=== PATIENT | male | born 1960 | race Hispanic/Latino ===

== ENCOUNTER 2023-10-05 13:33 | Emergency (ER) | payer OTHER ==
--- NOTE | 2023-10-05 14:04 | RAD REPORT ---
EXAM DESCRIPTION: CT - Ct Stroke Brain Wo Cont - 10/05/2023 1:54 pm CLINICAL HISTORY: Right facial droop COMPARISON: none TECHNIQUE: Computed axial tomography of the head was obtained. All CT scans are performed using dose optimization technique as appropriate and may include automated exposure control or mA/KV adjustment according to patient size. FINDINGS: Images are degraded by patient motion artifact 1 centimeter low-density area right periventricular white matter probably old An intracranial bleed is not seen . The ventricles are normal in caliber. No extra-axial fluid collection is noted. Mild low-density within periventricular, deep and subcortical white matter likely ischemic changes se condary to small vessel disease Fluid within the sinuses/ mastoids is not seen. IMPRESSION: No acute intracranial abnormality is seen. If patient's symptoms persist MRI of the bra in would be recommended Doctor Gama of the emergency room was notified 1:58 p.m. October 05, 2023
[2023-10-05 14:07] LABS: Absolute Basophils 0.1 K/uL (0-0.5); Absolute Eosinophils 0.3 K/uL (0-0.5); Absolute Lymphocytes (CBC) 1.6 K/uL (0.7-4.9); Absolute Monocytes 0.7 K/uL (0.1-1.3); Absolute Neutrophil 4.3 K/uL (1.8-8.0); Basophils % 1.5 % (0-1.3); Hematocrit 33.5 % (39.6-49.0); Hemoglobin 11.5 g/dL (13.6-17.9); Lymphocytes % 23.1 % (15.3-44.8); MCH 29.5 pg (27.0-35.0); MCHC 34.4 g/dL (32.0-36.0); MCV 85.8 fL (80-100); MPV 7.3 fL (7.6-11.3); Monocytes % 9.4 % (3.3-12.3); Platelets 189 thou/uL (152-406); RBC Red Blood Cell Count 3.91 M/uL (4.33-5.43); Red Cell Distribution Width 14.5 % (12.1-15.2)
[2023-10-05 14:13] LABS: PT Prothrombin Time 12.2 SECONDS (9.4-12.5); PTT, Activated Partial Thromb 41.4 SECONDS (24.3-36.9); Protime INR 1.11
[2023-10-05 14:25] LABS: Albumin/Globulin Ratio 0.9 (1.1-1.8); Alkaline Phosphatase 63 U/L (45-117); BUN Blood Urea Nitrogen 15 mg/dL (7-18); Bicarbonate 25 mEq/L (21-32); Bilirubin Direct 0.2 mg/dL (0-0.2); Bilirubin Indirect, Calculated 0.3 mg/dL (0.2-0.8); Bilirubin Total 0.5 mg/dL (0.2-1.0); Globulin 3.5 g/dL (2.3-3.5); Glomerular Filtration Rate 58 ml/min (=/>90); Glucose Level 169 mg/dL (74-106); Protein, Total 6.5 g/dL (6.4-8.2); Sodium Level 136 mEq/L (136-145); Troponin High Sensitivity 8.3 pg/mL (<58.9)
[2023-10-05 14:27] LABS: ALT/SGPT < 14 U/L (16-61); AST/SGOT < 10 U/L (15-37)
--- NOTE | 2023-10-05 14:35 | RAD REPORT ---
EXAM DESCRIPTION: CTHead angio10/05/2023 2:01 pm CLINICAL HISTORY: Facial droop COMPARISON: none TECHNIQUE: 100 cc Isovue [address] angiogram of the head was obtained. 3D MIPS reconstruction performed. All CT scans are performed using dose optimization technique as appropriate and may include automated exposure control or mA/KV adjustment according to patient size. FINDINGS: The basilar, anterior cerebral, middle cerebral and posterior cerebral arteries do not dem onstrate a significant stenosis Moderate calcified plaque distal right internal carotid artery Severe calcified plaque distal left internal carotid artery An aneurysm is not seen No large vessel occlusion IMPRESSION: Severe calcified plaque distal left internal carotid artery results in a high-grade sten osis Moderate calcified plaque distal right internal carotid artery
--- NOTE | 2023-10-05 14:36 | RAD REPORT ---
EXAM DESCRIPTION: Adilenekymberly Angio10/05/2023 2:01 pm CLINICAL HISTORY: Facial droop COMPARISON: None TECHNIQUE: 100 cc Isovue [address] angiogram of the neck was obtained. 3D MIPS reconstruction performed. All CT scans are performed using dose optimization technique as appropriate and may include automated exposure control or mA/KV adjustment according to patient size. FINDINGS: Visualized great vessels unremarkable Severe calcified plaque proximal left internal carotid artery. Severe calcified plaque proximal right internal carotid artery Severe calcified plaque distal left vertebral Moderate calcified plaque distal right vertebral artery Mild calcified common carotid and external carotid arteries No dissection is seen. [place] crieria Mild stenosis 0 to 49 % Moderate stenosis 50-69% Severe stenosis 70-99% IMPRESSION: Severe calcified plaque proximal left internal carotid, proximal right internal carotid and distal le ft vertebral arteries resulting in high-grade stenoses
[2023-10-05] MEDS ORDERED: ASPIRIN 81 MG CHEWABLE TABLET ONE (14:51)
[2023-10-05] MEDS ORDERED: FOLIC ACID 5 MG/ML VIAL ONE (14:51)
[2023-10-05] MEDS ORDERED: NA CHLORIDE 0.9% 1,000 ML ONE (14:53)
--- NOTE | 2023-10-05 14:54 | ER ---
Nurse's Notes [facility] Name: Bienvenido Matos Age: 63 yrs Sex: Male : 1960 Arrival Date: 10/05/2023 Time: 13:33 Bed 15 Private MD: Diagnosis: Cerebral infarction, unspecified;Carotid stenosis Presentation: 10/04 13:45 Chief complaint: Brother, "We noticed a right side facial droop this morning around mb9 9am. He went to bed last night at 11pm and isn't having any other symptoms.". Coronavirus screen: At this time, the client does not indicate any symptoms associated with coronavirus-19. Ebola Screen: No symptoms or risks identified at this time. Initial Sepsis Screen: Does the patient meet any 2 criteria? No. Patient's initial sepsis screen is negative. Does the patient have a suspected source of infection? No. Patient's initial sepsis screen is negative. Risk Assessment: Do you want to hurt yourself or someone else? Patient reports no desire to harm self or others. Onset of symptoms was October 05, 2023. 13:45 Acuity: WILLY 2 mb9 13:45 Method Of Arrival: Wheelchair mb9 Triage Assessment: 13:49 The onset of the patients symptoms was October 04, 2023 at 23:00. General: Appears in no mb9 apparent distress. Behavior is cooperative. Neuro: Maguire Agitation-Sedation Scale (RASS): 0 - Alert and Calm Level of Consciousness is awake, alert, obeys commands, Oriented to person, place, time, situation, Appropriate for age Scientist Engineer are equal bilaterally Moves all extremities. Gait is steady, Speech is normal, Facial droop on right, Pupils are PERRLA, Intact. 16:46 Pain: Denies pain. nj1 Historical: - Allergies: 13:44 No Known Allergies; mb9 - PMHx: 13:44 Hypertensive disorder; Diabetes mellitus; Schizophrenia; mb9 - PSHx: 13:44 None; mb9 - Immunization history:: Adult Immunizations up to date. - Infectious Disease History:: Denies. - Social history:: Smoking status: Patient denies any tobacco usage or history of. Screenin:12 VAN Screening: Arm Drift: Patient shows no arm weakness. Patient is VAN negative. es3 Visual Disturbance: No visual disturbance noted. Aphasia: No aphasia noted. Neglect: No neglect noted. [place] Swallow Protocol Exclusion Criteria: Exclusion Criteria Result: Proceed Brief Cognitive Screen What is your name? Normal, Where are you right now? Normal, What year is it? Normal. Oral Mechanism Examination Facial Symmetry: Normal, Motion: Normal, Lip Closure: Normal, Oral Mechanism Result: Normal. 3 oz Water Swallow Challenge: Pt able to drink all water without stopping, coughing, choking or throat clearing: Yes Result: PASS Notified: Blanca Duff PA-C. 14:33 [facility] ED Fall Risk Assessment (Adult) History of falling in the last 3 months, nj1 including since admission No falls in past 3 months (0 pts) Confusion or Disorientation No (0 pts) Intoxicated or Sedated No (0 pts) Impaired Gait No (0 pts) Mobility Assist Device Used No (0 pt) Altered Elimination No (0 pt) Score/Fall Risk Level 0 - 2 = Low Risk Oriented to surroundings, Maintained a safe environment, Hourly rounding (assess needs \\T\\ fall precautionary measures) done. Abuse screen: Denies threats or abuse. Denies injuries from another. Nutritional screening: No deficits noted. Tuberculosis screening: No symptoms or risk factors identified. Assessment: 12:45 General: Appears in no apparent distress. comfortable, Behavior is calm, cooperative, nj1 appropriate for age. 12:45 Pain: Denies pain. Neuro: Level of Consciousness is awake, alert, obeys commands, nj1 Oriented to person, place, time, situation, Scientist Engineer are equal bilaterally Moves all extremities. Gait is steady, Speech is slurred, Facial droop on right, Pupils are PERRLA, Intact. 12:50 TNKase (Tenecteplase) Screening: Contraindications: Patient reports onset of signs and nj1 symptoms of stroke greater than 6 hours ago:. 13:44 Reassessment: Code stroke called. mb9 13:48 Reassessment: pt taken to CT by charge nurse, Kindra. mb9 14:10 VAN Scoring: Arm Drift: Patients demonstrates NO arm weakness. Patient is VAN Negative. nj1 16:23 Reassessment: Patient appears in no apparent distress at this time. No changes from kj2 previously documented assessment. Patient and/or family updated on plan of care and expected duration. Pain level reassessed. Patient is alert, oriented x 3, equal unlabored respirations, skin warm/dry/pink. 16:50 Reassessment: Brother, Cesia Matos (PHILLIP), . nj1 17:25 Reassessment: Patient appears in no apparent distress at this time. Patient and/or nj1 family updated on plan of care and expected duration. Pain level reassessed. Patient is alert, oriented x 3, equal unlabored respirations, skin warm/dry/pink. 17:45 Reassessment: [facility] here to transport patient. Report given to Adilson EMTP. nj1 Vital Signs: 13:45 BP 167 / 97; Pulse 80; Resp 18; Temp 98; Pulse Ox 100% on R/A; Weight 77.11 kg; Height mb9 5 ft. 8 in. ; 14:29 BP 159 / 90; Pulse 71; Resp 18; Pulse Ox 100% ; nj1 16:19 BP 169 / 99; Pulse 72; Resp 20; Pulse Ox 100% on R/A; kj2 16:50 BP 192 / 109; Pulse 77; Resp 23; Pulse Ox 99% on R/A; nj1 17:25 BP 177 / 77; Pulse 86; Resp 22; Pulse Ox 100% ; nj1 13:45 Body Mass Index 25.85 (77.11 kg, 172.72 cm) mb9 NIH Stroke Scale Scores: 12:45 NIHSS Score: 3 nj1 13:44 NIHSS Score: 4 sb4 14:12 NIHSS Score: 3 es3 16:49 NIHSS Score: 3 nj1 ED Course: 12:45 Patient has correct armband on for positive identification. Bed in low position. Call nj light in reach. Adult w/ patient. 12:45 Provided Education on: call light, fall precautions. nj1 13:36 Patient arrived in ED. mg5 13:37 Blanca Duff PA-C is PHCP. sb4 13:37 Geoff Esteban DO is Attending Physician. sb4 13:44 Arm band placed on. mb9 13:48 Triage completed. mb9 13:51 Digna De La O, ELI is Primary Nurse. nj1 13:52 Inserted saline lock: 22 gauge in right antecubital area, using aseptic technique. nj1 Blood collected. Initiated by Darleen BENITEZ. 13:56 CT Stroke Brain w/o Contrast In Process Unspecified. EDMS 14:02 CT Head Angio In Process Unspecified. EDMS 14:02 CT Neck Angio In Process Unspecified. EDMS 14:19 Stroke CXR 1 View In Process Unspecified. EDMS 16:45 No provider procedures requiring assistance completed. Patient transferred, IV remains nj1 in place. 16:55 Notified Nurse Practitioner and/or Physician Climate Change Analyst of vital signs. nj1 Administered Medications: 15:01 Drug: NS 0.9% IV 1000 ml IV at 1 bolus Per protocol; 1000 mL bolus Route: IV; Rate: 1 nj1 bolus; Site: right antecubital; 15:01 Drug: Aspirin PO 162 mg PO once Route: PO; nj1 16:28 Follow up: Response: No adverse reaction nj1 15:01 Drug: foLIC Acid IVPB 1 mg IVPB once Route: IVPB; Site: right antecubital; nj1 16:28 Drug: Clopidogrel PO 75 mg PO once Route: PO; nj1 17:09 Follow up: Response: No adverse reaction nj1 17:08 Drug: hydrALAZINE IVP 10 mg IVP once Route: IVP; Site: right antecubital; nj1 17:25 Follow up: Response: No adverse reaction; Blood pressure is lowered nj1 Medication: 16:46 VIS not applicable for this client. nj1 Outcome: 14:54 ER care complete, transfer ordered by sb4 16:33 Transferred by ground EMS to [facility], Transfer form completed. nj1 Note: Report called to nurse Bouchra. 16:33 Condition: stable nj1 16:33 Instructed on the need for transfer, 17:52 Patient left the ED. nj1 NIH Stroke Scale - NIH Stroke Score Date: 10/05/2023 Time: 12:45 Total Score = 3 10. Dysarthria (speech clarity - read or repeat words) - 1(Mild to Moderate) 11. Extinction and Inattention (visual/tactile/auditory/spatial/personal) - 0(No abnormality) 1a. Level of Consciousness (LOC) - 0(Alert) 1b. Level of Consciousness (LOC) (Month \\T\\ Age) - 0(Both) 1c. LOC Commands (Open \\T\\ Closes Eyes/Enrolled Agent) - 0(Both) 2. Best Gaze (Lateral Gaze Paresis) - 0(Normal) 3. Visual Field Loss - 0(No visual loss) 4. Facial Palsy - 2(Partial paralysis) 5a. Left Arm: Motor (10-second hold) - 0(No drift) 5b. Right Arm: Motor (10-second hold) - 0(No drift) 6a. Left Leg: Motor (5-second hold - always test supine) - 0(No drift) 6b. Right Leg: Motor (5-second hold - always test supine) - 0(No drift) 7. Limb Ataxia (finger/nose \\T\\ heel/morales - test with eyes open) - 0(Absent) 8. Sensory Loss (pinprick arms/legs/face) - 0(Normal) 9. Best Language: Aphasia (description/naming/reading) - 0(No aphasia) Initials: nj1 NIH Stroke Scale - NIH Stroke Score Date: 10/05/2023 Time: 13:44 Total Score = 4 10. Dysarthria (speech clarity - read or repeat words) - 1(Mild to Moderate) 11. Extinction and Inattention (visual/tactile/auditory/spatial/personal) - 0(No abnormality) 1a. Level of Consciousness (LOC) - 0(Alert) 1b. Level of Consciousness (LOC) (Month \\T\\ Age) - 0(Both) 1c. LOC Commands (Open \\T\\ Closes Eyes/Enrolled Agent) - 0(Both) 2. Best Gaze (Lateral Gaze Paresis) - 0(Normal) 3. Visual Field Loss - 1(Partial hemianopia) 4. Facial Palsy - 2(Partial paralysis) 5a. Left Arm: Motor (10-second hold) - 0(No drift) 5b. Right Arm: Motor (10-second hold) - 0(No drift) 6a. Left Leg: Motor (5-second hold - always test supine) - 0(No drift) 6b. Right Leg: Motor (5-second hold - always test supine) - 0(No drift) 7. Limb Ataxia (finger/nose \\T\\ heel/morales - test with eyes open) - 0(Absent) 8. Sensory Loss (pinprick arms/legs/face) - 0(Normal) 9. Best Language: Aphasia (description/naming/reading) - 0(No aphasia) Initials: sb4 NIH Stroke Scale - NIH Stroke Score Date: 10/05/2023 Time: 14:12 Total Score = 3 10. Dysarthria (speech clarity - read or repeat words) - 1(Mild to Moderate) 11. Extinction and Inattention (visual/tactile/auditory/spatial/personal) - 0(No abnormality) 1a. Level of Consciousness (LOC) - 0(Alert) 1b. Level of Consciousness (LOC) (Month \\T\\ Age) - 0(Both) 1c. LOC Commands (Open \\T\\ Closes Eyes/Enrolled Agent) - 0(Both) 2. Best Gaze (Lateral Gaze Paresis) - 0(Normal) 3. Visual Field Loss - 0(No visual loss) 4. Facial Palsy - 2(Partial paralysis) 5a. Left Arm: Motor (10-second hold) - 0(No drift) 5b. Right Arm: Motor (10-second hold) - 0(No drift) 6a. Left Leg: Motor (5-second hold - always test supine) - 0(No drift) 6b. Right Leg: Motor (5-second hold - always test supine) - 0(No drift) 7. Limb Ataxia (finger/nose \\T\\ heel/morales - test with eyes open) - 0(Absent) 8. Sensory Loss (pinprick arms/legs/face) - 0(Normal) 9. Best Language: Aphasia (description/naming/reading) - 0(No aphasia) Initials: es3 NIH Stroke Scale - NIH Stroke Score Date: 10/05/2023 Time: 16:49 Total Score = 3 10. Dysarthria (speech clarity - read or repeat words) - 1(Mild to Moderate) 11. Extinction and Inattention (visual/tactile/auditory/spatial/personal) - 0(No abnormality) 1a. Level of Consciousness (LOC) - 0(Alert) 1b. Level of Consciousness (LOC) (Month \\T\\ Age) - 0(Both) 1c. LOC Commands (Open \\T\\ Closes Eyes/Enrolled Agent) - 0(Both) 2. Best Gaze (Lateral Gaze Paresis) - 0(Normal) 3. Visual Field Loss - 0(No visual loss) 4. Facial Palsy - 2(Partial paralysis) 5a. Left Arm: Motor (10-second hold) - 0(No drift) 5b. Right Arm: Motor (10-second hold) - 0(No drift) 6a. Left Leg: Motor (5-second hold - always test supine) - 0(No drift) 6b. Right Leg: Motor (5-second hold - always test supine) - 0(No drift) 7. Limb Ataxia (finger/nose \\T\\ heel/morales - test with eyes open) - 0(Absent) 8. Sensory Loss (pinprick arms/legs/face) - 0(Normal) 9. Best Language: Aphasia (description/naming/reading) - 0(No aphasia) Initials: [facility] Signatures: Dispatcher [employer] EDBlanca Medellin PA-C PA-C sb4 Francesca Chairez, RN RN mb9 Digna De La O RN RN nj1 Martín [facility]5 Elisa Teague RN RN es3 Chante Montana, RN RN kj2 Corrections: (The following items were deleted from the chart) 14:29 14:27 VAN Scoring: Arm Drift: Patients demonstrates NO arm weakness. Patient is [facility] VAN Negative. [facility] 16:29 16:28 BP 187 / 102; Pulse 73bpm; Resp 14bpm; Pulse Ox 97%; [place] [id number] 16:48 12:45 NIHSS Score: 4 [place] [id number] 16:48 16:47 NIHSS Score: 3 [place] [id number]
--- NOTE | 2023-10-05 14:54 | EDPHYS ---
Physician Documentation [facility] Name: Bienvenido Matos Age: 63 yrs Sex: Male : 1960 Arrival Date: 10/05/2023 Time: 13:33 Bed 15 Private MD: ED Physician Geoff Esteban HPI: 10/04 13:45 This 63 yrs old Male presents to ER via Unassigned with complaints of S/S of Possible sb4 Stroke. 13:45 The patient's problem is reported as a facial droop, on right, dysphasia, slurred sb4 speech. 13:53 Onset: The symptoms/episode began/occurred at an unknown time. friend brought patient sb4 in today with concern for stroke as he noticed slurred speech and facial droop last night. last known well was 2 days ago per friend. patient is a poor historian. denies any weakness, numbness, tingling. Historical: - Allergies: 13:44 No Known Allergies; mb9 - PMHx: 13:44 Hypertensive disorder; Diabetes mellitus; Schizophrenia; mb9 - PSHx: 13:44 None; mb9 - Immunization history:: Adult Immunizations up to date. - Infectious Disease History:: Denies. - Social history:: Smoking status: Patient denies any tobacco usage or history of. ROS: 13:53 Constitutional: Negative for fever, chills, and weight loss, sb4 13:53 Neuro: Positive for per HPI, Exam: 14:07 Radiologist reports: negative for acute CVA sb4 14:07 Cardiovascular: Regular rate and rhythm with a normal S1 and S2. Respiratory: Lungs have equal breath sounds bilaterally, clear to auscultation and percussion. No rales, rhonchi or wheezes noted. No increased work of breathing, no retractions or nasal flaring. Abdomen/GI: Soft, non-tender, no distension. Skin: Warm, dry with normal turgor. Normal color with no rashes, no lesions, and no evidence of cellulitis. 14:07 Constitutional: The patient appears in no acute distress, alert, awake, 14:07 Neuro: Orientation: to person, place, time \T\ situation. Mentation: is normal, able to follow commands, Memory: is normal, Cranial nerves: extraocular movements are intact, facial droop noted on right, with forehead spared. Speech is slurred, Motor: moves all fours, Sensation: is normal, no obvious gross deficits, Gait: is steady, Vital Signs: 13:45 BP 167 / 97; Pulse 80; Resp 18; Temp 98; Pulse Ox 100% on R/A; Weight 77.11 kg; Height mb9 5 ft. 8 in. ; 14:29 BP 159 / 90; Pulse 71; Resp 18; Pulse Ox 100% ; nj1 16:19 BP 169 / 99; Pulse 72; Resp 20; Pulse Ox 100% on R/A; kj2 16:50 BP 192 / 109; Pulse 77; Resp 23; Pulse Ox 99% on R/A; nj1 17:25 BP 177 / 77; Pulse 86; Resp 22; Pulse Ox 100% ; nj1 13:45 Body Mass Index 25.85 (77.11 kg, 172.72 cm) mb9 NIH Stroke Scale Scores: 12:45 NIHSS Score: 3 nj1 13:44 NIHSS Score: 4 sb4 14:12 NIHSS Score: 3 es3 16:49 NIHSS Score: 3 nj1 MDM: 13:44 Patient medically screened. sb4 14:53 Data reviewed: vital signs, nurses notes, lab test result(s), EKG, radiologic studies, [facility] I have discussed the patient's presentation/case with the attending Emergency Department Physician;. Counseling: I had a detailed discussion with the patient and/or guardian regarding the historical points, exam findings, and any diagnostic results supporting the discharge/admit diagnosis, the presence of at least one elevated blood pressure reading (>120/80) during this emergency department visit, lab results, radiology results, the need to transfer to another facility, for higher level of care, [facility] does not immediately have the required specialist. 15:48 Management of patient was discussed with the following: Mechanical Systems Designer: neuro fellow at [address], agrees to consult. 10/04 13:44 Order name: Basic Metabolic Panel; Complete Time: 14:28 [facility] 10/04 13:44 Order name: CBC with Diff; Complete Time: 14:08 [facility] 10/04 13:44 Order name: Hepatic Function; Complete Time: 14:28 [facility] 10/04 13:44 Order name: High Sensitivity Troponin; Complete Time: 14:28 [facility] 10/04 13:44 Order name: Magnesium; Complete Time: 14:28 sb4 10/04 13:44 Order name: Protime (+inr); Complete Time: 14:15 sb4 10/04 13:44 Order name: Ptt, Activated; Complete Time: 14:15 sb4 10/04 14:07 Order name: Glucose, Ancillary Testing; Complete Time: 14:08 EDMS 10/04 14:30 Order name: CREATININE WHOLE BLOOD; Complete Time: 14:33 EDMS 10/04 14:32 Order name: CREATININE WHOLE BLOOD EDMS 10/04 13:44 Order name: CT Head Angio; Complete Time: 14:37 sb4 10/04 13:44 Order name: CT Neck Angio; Complete Time: 14:37 sb4 10/04 13:44 Order name: CT Stroke Brain w/o Contrast; Complete Time: 14:07 sb4 10/04 13:44 Order name: Stroke CXR 1 View; Complete Time: 15:21 sb4 10/04 13:44 Order name: EKG; Complete Time: 13:45 sb4 10/04 13:44 Order name: Accucheck; Complete Time: 13:56 sb4 10/04 13:44 Order name: Cardiac monitoring; Complete Time: 14:36 sb4 10/04 13:44 Order name: EKG - Nurse/Tech; Complete Time: 14:36 sb4 10/04 13:44 Order name: IV Saline Lock; Complete Time: 14:36 sb4 10/04 13:44 Order name: Labs collected and sent; Complete Time: 14:36 sb4 10/04 13:44 Order name: NPO; Complete Time: 14:36 sb4 10/04 13:44 Order name: O2 Per Protocol; Complete Time: 13:56 sb4 10/04 13:44 Order name: O2 Sat Monitoring; Complete Time: 13:56 sb4 10/04 13:44 Order name: Stroke Swallow Screen; Complete Time: 14:36 sb4 EC:21 Rate is 79 beats/min. Rhythm is regular, Normal Sinus Rhythm. NM interval is normal at sb4 162 msec. QRS interval is normal at 88 msec. QT interval is normal at 392 msec. No Q waves. T waves are Peaked in leads V2, V3. No ST changes noted. Interpreted by me. Reviewed by me. Administered Medications: 15:01 Drug: NS 0.9% IV 1000 ml IV at 1 bolus Per protocol; 1000 mL bolus Route: IV; Rate: 1 nj1 bolus; Site: right antecubital; 15:01 Drug: Aspirin PO 162 mg PO once Route: PO; nj1 16:28 Follow up: Response: No adverse reaction nj1 15:01 Drug: foLIC Acid IVPB 1 mg IVPB once Route: IVPB; Site: right antecubital; nj1 16:28 Drug: Clopidogrel PO 75 mg PO once Route: PO; nj1 17:09 Follow up: Response: No adverse reaction nj1 17:08 Drug: hydrALAZINE IVP 10 mg IVP once Route: IVP; Site: right antecubital; nj1 17:25 Follow up: Response: No adverse reaction; Blood pressure is lowered nj1 Disposition: 15:13 I was immediately available on-site in the Emergency Department for consultation in the ms3 care of the patient. Disposition Summary: 10/05/23 14:54 Transfer Ordered Notes: Transfer Location: [facility] sb4 Reason: Higher level of care sb4 Condition: Fair sb4 Problem: new sb4 Symptoms: are unchanged sb4 Accepting Physician: neuro(10/05/23 17:52) nj1 Diagnosis - Cerebral infarction, unspecified sb4 - Carotid stenosis sb4 Forms: - Medication Reconciliation Form sb4 - SBAR form sb4 NIH Stroke Scale - NIH Stroke Score Date: 10/05/2023 Time: 12:45 Total Score = 3 10. Dysarthria (speech clarity - read or repeat words) - 1(Mild to Moderate) 11. Extinction and Inattention (visual/tactile/auditory/spatial/personal) - 0(No abnormality) 1a. Level of Consciousness (LOC) - 0(Alert) 1b. Level of Consciousness (LOC) (Month \T\ Age) - 0(Both) 1c. LOC Commands (Open \T\ Closes Eyes/Property Assistant) - 0(Both) 2. Best Gaze (Lateral Gaze Paresis) - 0(Normal) 3. Visual Field Loss - 0(No visual loss) 4. Facial Palsy - 2(Partial paralysis) 5a. Left Arm: Motor (10-second hold) - 0(No drift) 5b. Right Arm: Motor (10-second hold) - 0(No drift) 6a. Left Leg: Motor (5-second hold - always test supine) - 0(No drift) 6b. Right Leg: Motor (5-second hold - always test supine) - 0(No drift) 7. Limb Ataxia (finger/nose \T\ heel/morales - test with eyes open) - 0(Absent) 8. Sensory Loss (pinprick arms/legs/face) - 0(Normal) 9. Best Language: Aphasia (description/naming/reading) - 0(No aphasia) Initials: nj1 NIH Stroke Scale - NIH Stroke Score Date: 10/05/2023 Time: 13:44 Total Score = 4 10. Dysarthria (speech clarity - read or repeat words) - 1(Mild to Moderate) 11. Extinction and Inattention (visual/tactile/auditory/spatial/personal) - 0(No abnormality) 1a. Level of Consciousness (LOC) - 0(Alert) 1b. Level of Consciousness (LOC) (Month \T\ Age) - 0(Both) 1c. LOC Commands (Open \T\ Closes Eyes/Property Assistant) - 0(Both) 2. Best Gaze (Lateral Gaze Paresis) - 0(Normal) 3. Visual Field Loss - 1(Partial hemianopia) 4. Facial Palsy - 2(Partial paralysis) 5a. Left Arm: Motor (10-second hold) - 0(No drift) 5b. Right Arm: Motor (10-second hold) - 0(No drift) 6a. Left Leg: Motor (5-second hold - always test supine) - 0(No drift) 6b. Right Leg: Motor (5-second hold - always test supine) - 0(No drift) 7. Limb Ataxia (finger/nose \T\ heel/morales - test with eyes open) - 0(Absent) 8. Sensory Loss (pinprick arms/legs/face) - 0(Normal) 9. Best Language: Aphasia (description/naming/reading) - 0(No aphasia) Initials: sb4 NIH Stroke Scale - NIH Stroke Score Date: 10/05/2023 Time: 14:12 Total Score = 3 10. Dysarthria (speech clarity - read or repeat words) - 1(Mild to Moderate) 11. Extinction and Inattention (visual/tactile/auditory/spatial/personal) - 0(No abnormality) 1a. Level of Consciousness (LOC) - 0(Alert) 1b. Level of Consciousness (LOC) (Month \T\ Age) - 0(Both) 1c. LOC Commands (Open \T\ Closes Eyes/Property Assistant) - 0(Both) 2. Best Gaze (Lateral Gaze Paresis) - 0(Normal) 3. Visual Field Loss - 0(No visual loss) 4. Facial Palsy - 2(Partial paralysis) 5a. Left Arm: Motor (10-second hold) - 0(No drift) 5b. Right Arm: Motor (10-second hold) - 0(No drift) 6a. Left Leg: Motor (5-second hold - always test supine) - 0(No drift) 6b. Right Leg: Motor (5-second hold - always test supine) - 0(No drift) 7. Limb Ataxia (finger/nose \T\ heel/morales - test with eyes open) - 0(Absent) 8. Sensory Loss (pinprick arms/legs/face) - 0(Normal) 9. Best Language: Aphasia (description/naming/reading) - 0(No aphasia) Initials: es3 NIH Stroke Scale - NIH Stroke Score Date: 10/05/2023 Time: 16:49 Total Score = 3 10. Dysarthria (speech clarity - read or repeat words) - 1(Mild to Moderate) 11. Extinction and Inattention (visual/tactile/auditory/spatial/personal) - 0(No abnormality) 1a. Level of Consciousness (LOC) - 0(Alert) 1b. Level of Consciousness (LOC) (Month \T\ Age) - 0(Both) 1c. LOC Commands (Open \T\ Closes Eyes/Property Assistant) - 0(Both) 2. Best Gaze (Lateral Gaze Paresis) - 0(Normal) 3. Visual Field Loss - 0(No visual loss) 4. Facial Palsy - 2(Partial paralysis) 5a. Left Arm: Motor (10-second hold) - 0(No drift) 5b. Right Arm: Motor (10-second hold) - 0(No drift) 6a. Left Leg: Motor (5-second hold - always test supine) - 0(No drift) 6b. Right Leg: Motor (5-second hold - always test supine) - 0(No drift) 7. Limb Ataxia (finger/nose \T\ heel/morales - test with eyes open) - 0(Absent) 8. Sensory Loss (pinprick arms/legs/face) - 0(Normal) 9. Best Language: Aphasia (description/naming/reading) - 0(No aphasia) Initials: nj1 Signatures: Dispatcher [employer] EDMS Geoff Esteban, DO CAMARA ms3 Blanca Duff, BRANDYC PAFroilan sb4 Francesca Chairez RN RN mb9 Digna De La O RN RN nj1 Corrections: (The following items were deleted from the chart) 13:54 13:45 The patient's problem is reported as a facial droop, sb4 sb4 17:52 14:54 neuro sb4 nj1
--- NOTE | 2023-10-05 15:20 | RAD REPORT ---
EXAM DESCRIPTION: [place] Single View10/05/2023 2:17 pm CLINICAL HISTORY: Chest pain COMPARISON: none FINDINGS: Pulmonary vascular congestion is present Lungs appear clear of acute infiltrate Heart is mildly enlarged
[2023-10-05] MEDS ORDERED: CLOPIDOGREL 75 MG TABLET ONE (16:21)
[2023-10-05] MEDS ORDERED: HYDRALAZINE HCL 20 MG/ML VIAL ONE (17:04)
[2023-10-05 18:44] VITALS: BP 177/77; TEMP 98; O2SAT 100
--- NOTE | 2023-10-06 13:51 | EKG ---
Test Date: 2023-10-05 Test Time: 14:08:26 Behavior Management Specialist: SONIYA MEASUREMENT RESULTS: Intervals: Rate: 79 ME: 162 QRSD: 88 QT: 392 QTc: 449 Lamar: P: 85 ME: 162 QRS: 91 T: 32 INTERPRETIVE STATEMENTS: Normal sinus rhythm Normal ECG No previous ECG available for comparison Electronically Signed On 10-06-23 13:48:45 CDT by [place]
== END 2023-10-05 17:52 | disposition short-term general hospital (02) ==
LOC: ER 13:33
DX: I63.9 Cerebral infarction, unspecified (principal); I65.23 Occlusion and stenosis of bilateral carotid arteries; I10 Essential (primary) hypertension; R29.704 NIHSS score 4
CPT/HCPCS: 85025; 80048; 36415; 83735; 85610; 82565; 82947; 80076; 85730; 84484; 70496; 70498; 70450; 71045; Q9967; J0360; J7030; 93005

== ENCOUNTER 2023-11-30 07:37 | Inpatient (IN) | payer OTHER ==
[2023-11-30] MEDS ORDERED: METHYLPREDNISOLONE 125 MG INJ ONE (07:47)
[2023-11-30] MEDS ORDERED: LEVALBUTEROL 1.25 MG/3 ML NEB ONE (07:47)
[2023-11-30] MEDS ORDERED: MAGNESIUM SULFATE 1 gm IVPB 1 GM/100 ML BAG IV ONE (07:47)
[2023-11-30] MEDS ORDERED: IPRATROPIUM BROM 0.5MG/2.5ML ONE (07:47)
--- NOTE | 2023-11-30 08:22 | RAD REPORT ---
EXAM DESCRIPTION: RAD - Chest Single View - 11/30/2023 8:17 am CLINICAL HISTORY: Dyspnea;Cough Chest pain. COMPARISON: Chest Single View dated 10/05/2023 FINDINGS: Portable technique limits examination quality. There is extensive bilateral pulmonary opacities present which may represent pulmonary edema or pneum onia. The heart is upper limit normal in size. No displaced fractures.
[2023-11-30 08:27] LABS: Absolute Basophils 0.1 K/uL (0-0.5); Absolute Eosinophils 0.1 K/uL (0-0.5); Absolute Lymphocytes (CBC) 0.6 K/uL (0.7-4.9); Absolute Monocytes 0.7 K/uL (0.1-1.3); Absolute Neutrophil 5.8 K/uL (1.8-8.0); Basophils % 1.3 % (0-1.3); Eosinophils % 1.2 % (0-4.4); Hematocrit 35.2 % (39.6-49.0); Lymphocytes % 7.9 % (15.3-44.8); MCH 29.6 pg (27.0-35.0); MCHC 34.2 g/dL (32.0-36.0); MCV 86.6 fL (80-100); MPV 7.3 fL (7.6-11.3); Monocytes % 9.5 % (3.3-12.3); Neutrophils % 80.1 % (41.7-73.7); Nucleated Red Blood Cells % 0.1 % (0-0); Platelets 175 thou/uL (152-406); RBC Red Blood Cell Count 4.06 M/uL (4.33-5.43); Red Cell Distribution Width 14.7 % (12.1-15.2)
[2023-11-30 08:29] LABS: PT Prothrombin Time 12.1 SECONDS (9.4-12.5); PTT, Activated Partial Thromb 36.7 SECONDS (24.3-36.9); Protime INR 1.08
[2023-11-30 08:39] LABS: AST/SGOT 15 U/L (15-37); Albumin 3.4 g/dL (3.4-5.0); Albumin/Globulin Ratio 0.9 (1.1-1.8); Alkaline Phosphatase 59 U/L (45-117); Anion Gap 11.8 mEq/L (5.0-15.0); BUN Blood Urea Nitrogen 22 mg/dL (7-18); Bicarbonate 22 mEq/L (21-32); Bilirubin Total 0.4 mg/dL (0.2-1.0); Glomerular Filtration Rate 45 ml/min (=/>90); Glucose Level 226 mg/dL (74-106); Potassium 3.8 mEq/L (3.5-5.1); Protein, Total 7.4 g/dL (6.4-8.2); Sodium Level 126 mEq/L (136-145)
[2023-11-30 08:40] LABS: ALT/SGPT < 14 U/L (16-61)
[2023-11-30 09:01] LABS: SARS-CoV-2 Antigen CONTROL BLUE LINE VIS/BG OK
[2023-11-30 09:02] LABS: SARS-CoV-2 Antigen Rapid Res Positive (Negative)
[2023-11-30] MEDS ORDERED: AZITHROMYCIN 500 MG INJ IVPB ONE (09:02)
[2023-11-30] MEDS ORDERED: NA CHLORIDE 0.9% 250 ML ONE (09:02)
[2023-11-30] MEDS ORDERED: CEFTRIAXONE 1000 MG/VIAL ONE (09:02)
[2023-11-30] MEDS ORDERED: NA CHLORIDE 0.9% 50 ML ONE (09:03)
--- NOTE | 2023-11-30 09:28 | ER ---
Nurse's Notes [facility] Name: Bienvenido Matos Age: 63 yrs Sex: Male : 1960 Arrival Date: 11/30/2023 Time: 07:[address] Private MD: Diagnosis: Pneumonia due to SARS-associated coronavirus;COPD/ Chronic obstructive pulmonary disease with acute lower respiratory infection;Hypoxemia Presentation: 11/29 07:49 Chief complaint: EMS states: they were called to the home of the patient for shortness ap3 of breath. EMS states that the patient was diaphoretic, and grunting when they arrived. EMS reported an SPO2 of 77% on room air at their time of arrival. EMS states they administered 0.4 nitro sublingual X's 1, administered 4 liters of oxygen, and started a 20g IV to the right AC. Coronavirus screen: Client presents with at least one sign or symptom that may indicate coronavirus-19. Ebola Screen: No symptoms or risks identified at this time. Initial Sepsis Screen: Does the patient meet any 2 criteria? RR > 20 per min. HR > 90 bpm. Yes. Initial Sepsis Screen: Does the patient have a suspected source of infection? No. Patient's initial sepsis screen is negative. Risk Assessment: Do you want to hurt yourself or someone else? Patient reports no desire to harm self or others. Onset of symptoms is unknown. 07:49 Method Of Arrival: EMS: [facility] ap3 07:49 Acuity: WILLY 2 ap3 07:49 Care prior to arrival: Medication(s) given: Nitroglycerin, 0.4 mg SL x 1, IV initiated. ap3 20 GA, in the right antecubital area. Triage Assessment: 07:53 General: Appears distressed, Behavior is cooperative. Neuro: Level of Consciousness is ap3 awake, alert, obeys commands, Oriented to person, place, time. Cardiovascular: Patient's skin is warm and dry. Respiratory: Reports shortness of breath Airway is patent Respiratory effort is labored, Respiratory pattern is tachypnea Onset: The symptoms/episode began/occurred gradually, the patient has severe shortness of breath. 11:25 Pain: Denies pain. ap3 Historical: - Allergies: 07:52 No Known Allergies; ap3 - PMHx: 07:52 diabetes mellitus; Hypertensive disorder; Schizophrenia; ap3 - Immunization history:: unkown. - Infectious Disease History:: unkown. - Family history:: not pertinent. - Social history:: Smoking status: Patient reports the use of cigarette tobacco products, smokes two packs cigarettes per day. - Hospitalizations: : No recent hospitalization is reported. Screenin:54 Abuse screen: Denies threats or abuse. Nutritional screening: No deficits noted. ap3 Tuberculosis screening: No symptoms or risk factors identified. 11:24 [facility] ED Fall Risk Assessment (Adult) History of falling in the last 3 months, ap3 including since admission Yes- fall prone (multiple falls) (3 pts) Confusion or Disorientation No (0 pts) Intoxicated or Sedated No (0 pts) Impaired Gait Yes (1 pt) Mobility Assist Device Used No (0 pt) Altered Elimination No (0 pt) Score/Fall Risk Level 3 or more points = High Risk Oriented to surroundings, Maintained a safe environment, Educated pt \T\ family on fall prevention, incl call for assistance when getting out of bed, Assessed \T\ reinforced patient's understanding of fall precautions, Provided non-skid footwear, Hourly rounding (assess needs \T\ fall precautionary measures) done, Used ambulatory aids as needed (educated on \T\ assisted with), Used gait belt as appropriate Implemented a Fall Risk Plan of Care, Apply high fall risk patient identification: yellow non skid footwear/ fall signage, Remained w/in arm's length of patient and in sight while toileting, Offered frequent toileting (1:1 observation), Remained with patient while ambulating, Utilized family, sitter, or virtual traffic officer as indicated. Assessment: 08:26 Reassessment: Patient and/or family updated on plan of care and expected duration. Pain db level reassessed. Patient is alert, oriented x 3, equal unlabored respirations, skin warm/dry/pink. General: Appears distressed, uncomfortable, Behavior is cooperative. Respiratory: Airway is patent Respiratory effort is even, labored, Respiratory pattern is symmetrical, Patient placed on BiPAP:. 08:40 Respiratory: Patient placed on BiPAP: Inspiratory Pressure: 15 Expiratory (EPAP) ap3 Pressure: 8 FiO2%: 40 Respiratory Rate: 12. 09:29 Reassessment: Patient and/or family updated on plan of care and expected duration. Pain ap3 level reassessed. Patient is alert, oriented x 3, equal unlabored respirations, skin warm/dry/pink. Patient states symptoms have improved. Cardiovascular: Patient's skin is warm and dry. Respiratory: Airway is patent Respiratory effort is even, Respiratory pattern is regular, symmetrical. 14:30 Reassessment: attempted to call report, it is unknown if the bed assignment will stay. ap3 16:01 Reassessment: attempted to call report to ICU, was informed they needed to contact ap3 their financial systems manager prior to receiving report. 16:49 Cardiovascular: Rhythm is regular. Respiratory: ap3 Vital Signs: 07:49 BP 185 / 91; Pulse 122; Resp 36; Pulse Ox 91% on 4 lpm NC; Weight 83.91 kg; Height 5 ap3 ft. 7 in. ; 08:34 BP 150 / 81; Pulse 98; Resp 31; Pulse Ox 100% on BiPAP; ap3 09:30 BP 152 / 87; Pulse 98; Resp 26; Pulse Ox 100% on BiPAP; ap3 09:30 Temp 98.8(O); ap3 10:40 BP 145 / 94; Pulse 96; Resp 20; Pulse Ox 98% on BiPAP; ap3 07:49 Body Mass Index 28.97 (83.91 kg, 170.18 cm) ap3 ED Course: 07:43 Patient arrived in ED. bd 07:43 Hugo Guerrier MD is Attending Physician. rn 07:50 COVID swab sent to lab. Flu and/or RSV swab sent to lab. Maintain EMS IV. Dressing db intact. Good blood return noted. Site clean \T\ dry. Gauge \T\ site: 20 G RAC. 07:52 Triage completed. ap3 07:54 Arm band placed on right wrist. ap3 07:54 Patient has correct armband on for positive identification. Placed in gown. Bed in low ap3 position. Call light in reach. Side rails up X2. Client placed on continuous cardiac and pulse oximetry monitoring. NIBP monitoring applied. analysis director on. Pulse ox on. NIBP on. 07:54 EKG done, by ED staff, reviewed by Hugo Guerrier MD. ap3 07:55 Izabela Morejon, ELI is Primary Nurse. ap3 08:09 Initial lab(s) drawn, Lab(s) recollected, Second set of blood cultures drawn. Inserted db saline lock: 22 gauge in left antecubital area, using aseptic technique. Blood collected. Flushed with 10 mL NS. 08:18 Chest Single View XRAY In Process Unspecified. EDMS 09:02 Notified ED physician of a critical lab result(s). Covid positive. ll1 09:27 Francois Delacruz MD is Hospitalizing Provider. rn 11:25 Provided Education on: educated on bipap, call light and fall risk. ap3 11:46 Troponin High Sensitivity Sent. tm6 11:46 BNP Sent. tm6 12:19 Notified ED physician of a critical lab result(s). Troponin 1250.9. ll1 13:36 EKG done. tm3 16:49 No provider procedures requiring assistance completed. Patient admitted, IV remains in ap3 place. Administered Medications: 07:56 Drug: MethylPrednisoLONE IVP 125 mg IVP once Route: IVP; Site: right antecubital; db 08:59 Follow up: Response: No adverse reaction db 07:56 Drug: Levalbuterol Inhalation 1.25 mg Inhalation once Route: Inhalation; db 08:59 Follow up: Response: No adverse reaction db 07:56 Drug: Levalbuterol Inhalation 1.25 mg Inhalation once Route: Inhalation; db 08:30 Follow up: Response: No adverse reaction db 07:56 Drug: Ipratropium Inhalation Aerosol 0.5 mg Inhalation once Route: Inhalation; db 08:30 Follow up: Response: No adverse reaction db 07:56 Drug: Magnesium Sulfate IVPB 1 grams IVPB once over 1 hrs Route: IVPB; Infused Over: 1 db hrs; Site: right antecubital; 08:59 Follow up: Response: No adverse reaction; IV Status: Completed infusion; IV Intake: db 100ml 09:15 Drug: Rocephin IV 1 grams IV at calculated rate once; Given slow IV push per pharmacy db instructions Route: IV; Rate: calculated rate; Site: left antecubital; 09:19 Follow up: Response: No adverse reaction; IV Status: Completed infusion; IV Intake: 50mldb 09:18 Drug: Zithromax IVPB 500 mg IVPB once over 1 hrs; mix in 250 mL NS Route: IVPB; Infused db Over: 1 hrs; Site: right antecubital; 11:26 Follow up: IV Status: Completed infusion ap3 11:26 Follow up: IV Intake: 250ml ap3 Medication: 11:24 VIS not applicable for this client. ap3 Intake: 08:59 IV: 100ml; Total: 100ml. db 09:19 IV: 50ml; Total: 150ml. db 11:26 IV: 250ml; Total: 400ml. ap3 Outcome: :27 Decision to Hospitalize by Provider. rn 16:50 Admitted to ICU accompanied by nurse, accompanied by tech, room ICU2, ap3 16:50 Condition: stable 16:50 Instructed on the need for admit, 16:50 Patient left the ED. ap3 Signatures: Dispatcher [employer] EDMS Maria Ines Leija Toni tm3 Hugo Guerrier MD MD rn Prokisch, Amanda, RN RN ap3 Sarahi Hernandez RN RN ll1 Aaliyah Singh, RN RN db Luly Mathew RN RN tm6
--- NOTE | 2023-11-30 09:28 | EDPHYS ---
Physician Documentation [facility] Name: Bienvenido Matos Age: 63 yrs Sex: Male : 1960 Arrival Date: 11/30/2023 Time: 07:[address] Private MD: ED Physician Hugo Guerrier HPI: 11/29 07:50 This 63 yrs old Male presents to ER via Unassigned with complaints of rn Shortness Of Breath. 07:50 The patient has shortness of breath at rest. Onset: The symptoms/episode began/occurred rn this morning. Duration: The symptoms are continuous. The patient's shortness of breath is aggravated by coughing, light activity, is alleviated by application of supplemental oxygen. Associated signs and symptoms: Pertinent positives: non-productive cough, Pertinent negatives: chest pain, fever, hemoptysis, loss of consciousness. Severity of symptoms: At their worst the symptoms were moderate in the emergency department the symptoms have improved. The patient has experienced similar episodes in the past. Patient reports shortness of breath that began this morning. Reports nonproductive cough, no fever. No chest pain. EMS picked him up and oxygen saturation was 78%, was diaphoretic, placed him on oxygen with improvement of symptoms. Patient was at home, felt like he needed a fan in front of him to breathe. Lung time smoker and still actively smoking.. Historical: - Allergies: 07:52 No Known Allergies; ap3 - PMHx: 07:52 diabetes mellitus; Hypertensive disorder; Schizophrenia; ap3 - Immunization history:: unkown. - Infectious Disease History:: unkown. - Family history:: not pertinent. - Social history:: Smoking status: Patient reports the use of cigarette tobacco products, smokes two packs cigarettes per day. - Hospitalizations: : No recent hospitalization is reported. ROS: 07:50 Constitutional: Negative for fever, chills, and weight loss, Neck: Negative for injury, rn pain, and swelling, Cardiovascular: Negative for chest pain, palpitations, and edema, Respiratory: Positive for cough, and shortness of breath, negative for hemoptysis Abdomen/GI: Negative for abdominal pain, nausea, vomiting, diarrhea, and constipation, Back: Negative for injury and pain, MS/Extremity: Negative for injury and deformity, Neuro: Negative for headache, weakness, numbness, tingling, and seizure, Exam: 07:50 Constitutional: This is a well developed, well nourished patient who is awake, alert, rn and in no acute distress. ENT: No stridor, dry mucous membranes Cardiovascular: Tachycardic, regular. Respiratory: Moderate tachypnea, coarse bilateral breath sounds with retractions present Abdomen/GI: Soft, nontender Skin: Warm, dry MS/ Extremity: Pulses equal, no cyanosis. Neuro: Awake and alert, GCS 15 12:51 ECG was reviewed by the Attending Physician. rn Vital Signs: 07:49 BP 185 / 91; Pulse 122; Resp 36; Pulse Ox 91% on 4 lpm NC; Weight 83.91 kg; Height 5 ap3 ft. 7 in. ; 08:34 BP 150 / 81; Pulse 98; Resp 31; Pulse Ox 100% on BiPAP; ap3 09:30 BP 152 / 87; Pulse 98; Resp 26; Pulse Ox 100% on BiPAP; ap3 09:30 Temp 98.8(O); ap3 10:40 BP 145 / 94; Pulse 96; Resp 20; Pulse Ox 98% on BiPAP; ap3 07:49 Body Mass Index 28.97 (83.91 kg, 170.18 cm) ap3 MDM: 07:43 Patient medically screened. rn 08:47 ED course: Marked improvement after bipap and nebulizer treatments.. rn 09:25 Differential diagnosis: Chronic Obstructive Pulmonary Disease pneumonia, Pneumothorax rn pulmonary edema, reactive airway disease. Data reviewed: vital signs, nurses notes, lab test result(s), radiologic studies, plain films, and as a result, I will admit patient. Consideration of Admission/Observation Patient was admitted/placed on observation. Escalation of care including admission/observation considered. Independent interpretation of the following test(s) in the Emergency Department X-Ray: My interpretation is Chest x-ray images show bilateral pneumonia per my interpretation. Care significantly affected by the following chronic conditions: Hypertension, Chronic Obstructive Pulmonary Disease. Counseling: I had a detailed discussion with the patient and/or guardian regarding the historical points, exam findings, and any diagnostic results supporting the discharge/admit diagnosis, lab results, radiology results, the need for further work-up and treatment in the hospital. Response to treatment: the patient's symptoms have markedly improved after treatment, and as a result, I will admit patient. ED course: . ED course: I personally spent 35 minutes engaged in work directly related to the individual patient's care. This does not include any time spent performing procedures. The patient has been deemed critically ill because of COPD exacerbation, respiratory distress and impending failure requiring BiPAP utilization and multiple nebulizer treatments.. 11/29 07:44 Order name: Blood Culture Adult (2) rn 11/29 07:44 Order name: CBC with Diff; Complete Time: 08:46 rn 11/29 07:44 Order name: CMP; Complete Time: 08:46 rn 11/29 07:44 Order name: Lactate w/ 2H reflex if indic.; Complete Time: 08:46 rn 11/29 07:44 Order name: Protime (+inr); Complete Time: 08:46 rn 11/29 07:44 Order name: Ptt, Activated; Complete Time: 08:46 rn 11/29 07:44 Order name: SARS RAPID; Complete Time: 09:23 rn 11/29 07:44 Order name: Flu; Complete Time: 09:23 rn 11/29 11:29 Order name: Troponin High Sensitivity rn 11/29 11:29 Order name: BNP rn 11/29 12:15 Order name: Troponin High Sensitivity; Complete Time: 12:18 EDMS 11/29 12:15 Order name: NT PRO-BNP; Complete Time: 12:18 EDMS 11/29 12:27 Order name: ABG Arterial Blood Gas; Complete Time: 13:18 EDMS 11/29 12:34 Order name: Glucose, Ancillary Testing; Complete Time: 13:18 EDMS 11/29 13:06 Order name: Protime (+INR); Complete Time: 13:18 EDMS 11/29 13:10 Order name: Phosphorus; Complete Time: 13:18 EDMS 11/29 13:13 Order name: PTT, Activated Partial Thromb; Complete Time: 13:18 EDMS 11/29 13:13 Order name: D-Dimer; Complete Time: 13:18 EDMS 11/29 13:18 Order name: Basic Metabolic Panel; Complete Time: 14:23 EDMS 11/29 13:18 Order name: Troponin High Sensitivity; Complete Time: 14:23 EDMS 11/29 07:44 Order name: Chest Single View XRAY; Complete Time: 08:46 rn 11/29 14:19 Order name: CT; Complete Time: 14:23 EDME 11/29 10:01 Order name: CONS Physician Consult [facility] 11/29 07:44 Order name: Accucheck; Complete Time: 08:35 rn 11/29 07:44 Order name: Cardiac monitoring; Complete Time: 07:45 rn 11/29 07:44 Order name: EKG - Nurse/Tech; Complete Time: 07:45 rn 11/29 07:44 Order name: IV Saline Lock - Large Bore; Complete Time: 08:35 rn 11/29 07:44 Order name: Labs collected and sent; Complete Time: 08:35 rn 11/29 07:44 Order name: O2 Per Protocol; Complete Time: 07:55 rn 11/29 07:44 Order name: O2 Sat Monitoring; Complete Time: 07:55 rn 11/29 07:44 Order name: Vital Signs; Complete Time: 07:55 rn EC:51 Rate is 123 beats/min. Rhythm is regular. QRS [place] is Normal. [place] interval is normal. rn QRS interval is normal. QT interval is normal. No Q waves. ST Segment is depressed in leads V4, V5, V6. Clinical impression: Sinus tachycardia. Interpreted by me. Reviewed by me. Administered Medications: 07:56 Drug: MethylPrednisoLONE IVP 125 mg IVP once Route: IVP; Site: right antecubital; db 08:59 Follow up: Response: No adverse reaction db 07:56 Drug: Levalbuterol Inhalation 1.25 mg Inhalation once Route: Inhalation; db 08:59 Follow up: Response: No adverse reaction db 07:56 Drug: Levalbuterol Inhalation 1.25 mg Inhalation once Route: Inhalation; db 08:30 Follow up: Response: No adverse reaction db 07:56 Drug: Ipratropium Inhalation Aerosol 0.5 mg Inhalation once Route: Inhalation; db 08:30 Follow up: Response: No adverse reaction db 07:56 Drug: Magnesium Sulfate IVPB 1 grams IVPB once over 1 hrs Route: IVPB; Infused Over: 1 db hrs; Site: right antecubital; 08:59 Follow up: Response: No adverse reaction; IV Status: Completed infusion; IV Intake: db 100ml 09:15 Drug: Rocephin IV 1 grams IV at calculated rate once; Given slow IV push per pharmacy db instructions Route: IV; Rate: calculated rate; Site: left antecubital; 09:19 Follow up: Response: No adverse reaction; IV Status: Completed infusion; IV Intake: 50mldb 09:18 Drug: Zithromax IVPB 500 mg IVPB once over 1 hrs; mix in 250 mL NS Route: IVPB; Infused db Over: 1 hrs; Site: right antecubital; 11:26 Follow up: IV Status: Completed infusion ap3 11:26 Follow up: IV Intake: 250ml ap3 Disposition: 09:25 Critical Care:. rn Disposition Summary: 11/30/23 09:27 Hospitalization Ordered Notes: Hospitalization Status: Inpatient Admission rn Provider: Francois Delacruz rn Condition: Stable rn Problem: new rn Symptoms: have improved rn Bed/Room Type: Standard rn Location: Intensive Care Unit(11/30/23 14:16) bd Room Assignment: 2-(11/30/23 14:16) bd Diagnosis - Pneumonia due to SARS-associated coronavirus rn - COPD/ Chronic obstructive pulmonary disease with acute lower respiratory infection rn - Hypoxemia rn Forms: - Medication Reconciliation Form rn - SBAR form rn - Leadership Thank You Letter afternoon babysitter time excluding procedures: 09:25 Critical care time: Bedside Care: 30 minutes, Family Intervention: 5 minutes. Total rn time: 35 minutes Signatures: Dispatcher [employer] EDMS Maria Inse Leija Roman, MD MD rn Aguilar, Jose, RN RN Izabela Howard RN RN ap3 Aaliyah Singh RN RN db Corrections: (The following items were deleted from the chart) 07:45 07:45 BLOOD CULTURE*+BA.LAB.BRZ ordered. EDMS EDMS 07:45 07:45 CBC+H.LAB.BRZ ordered. EDMS EDMS 07:45 07:45 COMPREHENSIVE METABOLIC PANEL+C.LAB.BRZ ordered. EDMS EDMS 07:45 07:45 LACTATE+C.LAB.BRZ ordered. EDMS EDMS 07:45 07:45 PROTIME (+INR)+COAG.LAB.BRZ ordered. EDMS EDMS 07:45 07:45 PTT, ACTIVATED+COAG.LAB.BRZ ordered. EDMS EDMS 07:45 07:45 SARS-COV-2 Antigen Rapid+I.LAB.BRZ ordered. EDMS EDMS 07:45 07:45 Influenza Screen (A \T\ B)+BA.LAB.BRZ ordered. EDMS EDMS 07:45 07:45 Chest Single View+RAD.RAD.BRZ ordered. EDMS EDMS 07:45 07:45 BiPap ([employer] Only)+RC.RAD.BRZ ordered. EDMS EDMS 11:04 09:27 Telemetry/MedSurg (Inpatient) rn bd 11:04 09:27 rn bd 13:23 11:[address] [facility] ER HOLD bd bd 13:23 11:04 ERHOLD- bd bd 13:40 13:23 Intensive Care Unit bd ja1 13:40 13:23 2- bd ja1 14:16 13:[address] [facility] ER HOLD ja1 bd 14:16 13:40 ERHOLD- ja1 bd
--- NOTE | 2023-11-30 10:05 | P.HP ---
Certification for Inpatient Patient admitted to: Inpatient With expected LOS: <2 Midnights <Nahed Chapman - Last Filed: 11/30/23 19:59> Patient History Date of Service: 11/30/23 Reason for admission: NSTEMI, hypoxia History of Present Illness: 63-year-old male with a past medical history of diabetes, hypertension, schizophrenia, presents to the emergency room via EMS. Per nursing his brother called EMS because the patient was short of breath at home. Reports shortness of breath worse with exertion, worse while lying flat, reports associated coughing, he denies history of congestive heart failure, he denies chest pain, no reported edema, ER evaluation on arrival to EMS patient was 78%, was placed on oxygen and BiPAP in the emergency room. Reports extensive history of tobacco use, and is still smoking. Laboratory evaluation elevated troponin 1250, 1679, placed on a heparin drip in the emergency room. Elevated BNP 9607,, patient placed on BiPAP BiPAP for shortness of breath, diuretics, he has mild hyponatremia 126, acute kidney injury, nephrology consulted for hyponatremia. Cardiology consulted for elevated troponin, echo ordered for the a.m., CBC no leukocytosis,, microcytic anemia 11.5 repeat 12.0, patient Positive for COVID. Plan to admit to ICU on BiPAP, for acute hypoxic respiratory failure secondary to COVID, heart failure, CT of the chest negative for PE. <Nahed Chapman - Last Filed: 11/30/23 19:59> Date of Service: 11/30/23 <Francois Delacruz - Last Filed: 12/23/23 02:45> Allergies No Known Allergies Allergy (Unverified 11/30/23 10:51) Home Medications: Aspirin [Esperanza Chewable Aspirin] 81 mg PO DAILY 11/30/23 Benztropine Mesylate 1 mg PO BEDTIME 11/30/23 Fluoxetine HCl 10 mg PO DAILY 11/30/23 Metformin HCl 850 mg DAILY 11/30/23 Metoprolol Succinate 100 mg pe PO DAILY 11/30/23 NIFEdipine [Nifedipine ER] 60 mg PO DAILY 11/30/23 Risperidone [Risperdal] 1 mg PO BID 11/30/23 Trazodone HCl 50 mg PO DAILY 11/30/23 Atorvastatin Calcium [Lipitor*] 20 mg PO BEDTIME #30 tab 12/05/23 Clopidogrel Bisulfate [Plavix*] 75 mg PO DAILY #30 tab 12/05/23 Nirmatrelvir/Ritonavir [Paxlovid 150-100 mg Pack] 2 tab PO BID #1 dose 12/05/23 Review of Systems per HPI <Nahed Chapman - Last Filed: 11/30/23 19:59> Physical Examination - Vital Signs Pulse: 110 Pulse Ox (%): 97 - Physical Exam General: Alert, Oriented x3, Mild distress HEENT: Atraumatic, Normocephalic Neck: Supple, JVD not distended Respiratory: Normal air movement, Crackles/rales Cardiovascular: Normal pulses, Regular rate/rhythm Capillary refill: <2 Seconds Gastrointestinal: Normal bowel sounds, Soft and benign Musculoskeletal: No clubbing, No swelling Integumentary: No breakdown, No significant lesion Neurological: Normal speech, Normal strength at 5/5 x4 extr - Studies Laboratory Data (last 24 hrs) 11/30/23 11/30/23 11/30/23 08:09 08:09 08:09 WBC 7.30 Hgb 12.0 L Hct 35.2 L Plt Count 175 PT 12.1 INR 1.08 APTT 36.7 Sodium 126 L Potassium 3.8 BUN 22 H Creatinine 1.68 H Glucose 226 H Total Bilirubin 0.4 AST 15 ALT < 14 L Alkaline Phosphatase 59 Microbiology Data (last 24 hrs): 11/30/23 07:50 Nasopharnyx Influenza Type A Antigen Screen - Final 11/30/23 07:50 Nasopharnyx Influenza Type B Antigen Screen - Final <Nahed Chapman - Last Filed: 11/30/23 19:59> Assessment and Plan - Plan Assessment plan Acute hypoxic respiratory failure secondary to COVID/heart failure COVID NSTEMI, elevated troponin Elevated BNP Cardiology consult, telemetry, Trend troponin, Echo ordered for the a.m. EKG on arrival to the ER 123 beats/min. Rhythm is regular. QRS [place] is Normal. [place] interval is normal. QRS interval is normal. QT interval is normal. No Q waves. ST Segment is depressed in leads V4, V5, V6. Clinical impression: Sinus tachycardia daily wt, IO hypertension unknown control Hypertensive urgency Resume appropriate home meds As needed antihypertensive BP 185 / 91; Pulse 122; Resp 36; Pulse Ox 91% on 4 lpm NC; Weight 83.91 kg; Height 5 ap3 ft. 7 in Hyponatremia Acute kidney kidney injury likely secondary to prerenal CHF Nephrology consult History of schizophrenia resume approp home meds Full code DVT heparin drip Diet n.p.o. Disposition Home independent prior Discharge Plan: Home - Advance Directives Does patient have a Living Will: No Does patient have a Durable POA for Healthcare: No - Code Status/Comfort Care Code Status: Full Code Critical Care: Yes Time Spent Managing Pts Care (In Minutes): 65 <Nahed Chapman - Last Filed: 11/30/23 19:59> Date of Service: 11/30/23 Chart has been reviewed. Events of the last 24 hours have been noted. Case discussed with LELE. I performed a substantial part of the MDM during this p atient's care today. I personally made or approved the documented management plan and acknowledge its risk of complications. I agree with the findings and documentation provided in the LELE's notes <Francois Delacruz - Last Filed: 12/23/23 02:45>
[2023-11-30] MEDS ORDERED: IPRATROPIUM BROM 0.5MG/2.5ML NEB PRN (12:08)
[2023-11-30] MEDS: NA CHLORIDE 0.9% 1,000 ML IV SCH (12:08)
[2023-11-30] MEDS ORDERED: ONDANSETRON 4 MG/2 ML VIAL IV PRN (12:08)
[2023-11-30] MEDS: INSULIN REGULAR (HUMAN) 100 UNIT/ML SQ SCH ×2 (12:08→12:35)
[2023-11-30] MEDS ORDERED: ACETAMINOPHEN 500 MG TAB PO PRN (12:08)
[2023-11-30] MEDS ORDERED: LEVALBUTEROL 0.63 MG/3 ML NEB NEB PRN (12:08)
[2023-11-30 12:15] LABS: Troponin High Sensitivity 1250.9 pg/mL (<58.9)
[2023-11-30 12:25] LABS: Blood Gas Oxyhemoglobin 89.4 % (94-97); Blood O2 Saturation 94.4 % (92-98.5)
[2023-11-30 12:26] LABS: Arterial Blood Carboxyhemoglob 3.5 % (0-1.5); Blood Gas THB 11.4 g/dl (12-18)
[2023-11-30] MEDS ORDERED: HEPARIN/D5W 25,000 UNIT/500 ML BAG IV ONE ×2 (12:43→15:18)
[2023-11-30 13:05] LABS: D-Dimer 1.461 FEUug/mL (0-0.500); PT Prothrombin Time 12.1 SECONDS (9.4-12.5); PTT, Activated Partial Thromb 39.1 SECONDS (24.3-36.9); Protime INR 1.08
[2023-11-30 13:14] LABS: Anion Gap 11.9 mEq/L (5.0-15.0); Potassium 3.9 mEq/L (3.5-5.1)
[2023-11-30 13:18] LABS: Troponin High Sensitivity 1679.5 pg/mL (<58.9)
[2023-11-30] MEDS: HEPARIN/D5W 25,000 UNIT/500 ML BAG IV SCH (13:55)
--- NOTE | 2023-11-30 14:19 | RAD REPORT ---
EXAM DESCRIPTION: CT - Chest Angio - 11/30/2023 1:12 pm CLINICAL HISTORY: elevated trop COMPARISON: Chest Single View dated 11/30/2023 TECHNIQUE: Thin axial CT images of the chest were obtained following administration of 100 mL Isovue 370 IV contrast. Multiplanar reconstructions, and maximum intensity projection reconstructions were generated and reviewed. Exam utilizes a protocol for optimal evaluation of pulmonary arterial tree. All CT scans are performed using dose optimization technique as appropriate and may include automated exposure control or mA/KV adjustment according to patient size. FINDINGS: Motion artifact limits evaluation. Pulmonary arteries are normal. No emboli or other suspicious finding. No acute or significant aorta f indings. Central and bibasilar dependent reticular opacities with interstitial pattern with mild bronchial wal l thickening. Trace bilateral pleural effusions. Confluent subpleural right lower lobe opacity facet axial image. No pleural thickening or pleural effusion. No pneumothorax. No abnormal mediastinal or hilar masses or lymphadenopathy seen. No chest wall mass or abnormal axill iary lymphadenopathy. IMPRESSION: No evidence of acute central pulmonary emboli. Predominantly central and bibasilar dependent interstitial opacities as above, with trace bilateral e ffusions, suggesting pulmonary edema.
--- NOTE | 2023-11-30 17:07 | P.CNS ---
Date of Consult: 11/30/23 Chief Complaint: SOB History of Present Illness: Patient presented with worsening SOB, chest congestion and weakness for the last few days, denies having chest pain, no palpitations, no syncope. Allergies No Known Allergies Allergy (Unverified 11/30/23 10:51) Home medications list reviewed: Yes - Past Medical/Surgical History Diabetic: Yes -: HYPERTENSION -: SCHIZOPHRENIA -: DM - Social History Place of Residence: Home Review of Systems 10-point ROS is otherwise unremarkable Physical Examination Temp Pulse Resp BP Pulse Ox 98.5 F 96 H 28 H 167/108 H 96 11/30/23 12:31 11/30/23 15:32 11/30/23 15:32 11/30/23 15:32 11/30/23 15:32 General: Alert, In no apparent distress HEENT: Atraumatic, PERRLA, Mucous membr. moist/pink, EOMI, Sclerae nonicteric Neck: Supple, 2+ carotid pulse no bruit, No LAD, Without JVD or thyroid abnormality Respiratory: Diminished, Crackles/rales Cardiovascular: Regular rate/rhythm, Normal S1 S2 Gastrointestinal: Normal bowel sounds, No tenderness Musculoskeletal: No tenderness Integumentary: No rashes Neurological: Normal gait, Normal speech, Normal tone, Normal affect Lymphatics: No axilla or inguinal lymphadenopathy Laboratory Data (last 24 hrs) 11/30/23 11/30/23 11/30/23 08:09 08:09 08:09 WBC 7.30 Hgb 12.0 L Hct 35.2 L Plt Count 175 PT 12.1 INR 1.08 APTT 36.7 Sodium 126 L Potassium 3.8 BUN 22 H Creatinine 1.68 H Glucose 226 H Total Bilirubin 0.4 AST 15 ALT < 14 L Alkaline Phosphatase 59 - Problems (1) NSTEMI (non-ST elevated myocardial infarction) Current Visit: Yes Status: Acute Plan: most likely type 2 ID from COVID infection, EKG shows some ST depressions in lateral leads Heparin drip ASA 81 mg daily Lipitor 40 mg daily Get Echo (2) SOB (shortness of breath) Current Visit: Yes Status: Acute Plan: Lasix 40 mg IV BID Monitor input and output get Echo (3) HTN (hypertension) Current Visit: Yes Status: Acute Plan: Metoprolol 25 mg po BID
[2023-11-30] MEDS: METOPROLOL TARTRATE 5 MG/5 ML INJ IV PRN (19:50)
[2023-11-30] MEDS: FUROSEMIDE 40 MG/4 ML VIAL IV SCH (20:30)
[2023-11-30 21:25] LABS: Sqamous Epithelial <5 /HPF (None Seen); Urine Bacteria None Seen /HPF (<20); Urine Bilirubin NEGATIVE (Negative); Urine Blood 1+ (Negative); Urine Clarity Clear (Clear); Urine Color Colorless (Yellow); Urine Culture Reflex Order NOT NEEDED; Urine Glucose 2+ (Negative); Urine Ketones NEGATIVE (Negative); Urine Microscopic Reflex YN ORDER UMIC; Urine Nitrite NEGATIVE (Negative); Urine Protein 1+ (Negative); Urine RBC <5 /HPF (None Seen); Urine Urobilinogen Normal (Normal); Urine WBC None Seen /HPF (<5)
--- NOTE | 2023-11-30 22:12 | CON ---
Date of Consultation: 11/30/2023 Chief Complaint: Shortness of breath. Reason For Consultation: Hyponatremia, abnormal renal function. History Of Present Illness: The patient is a poor historian. History is mainly obtained from the art. This is a 63-year-old man with past medical history of diabetes mellitus with chronic kidney disease, stage 3. Creatinine was 1.38 in September and history o f hypertension. The patient was brought by brother to the ER for shortness of breath. The patient s tated yesterday he was complaining of shortness of breath and had to turn the fan so he can breathe b mir. Brother noticed that the patient had labored breathing today and brought the patient to the E R. In the emergency room, labs were significant for a sodium of 126, creatinine 1.68, and O2 saturat ion down to 78% on room air. The patient was placed on BiPAP. He was tested positive for COVID and he was admitted for further evaluation. Past Medical History: Diabetes mellitus, chronic kidney disease. Past Surgical History: None. Family History: Noncontributory. Allergies: NO KNOWN DRUG ALLERGIES. Social History: Active tobacco user, smokes 2 packs daily. Review of Systems: Limited due to his mental status and using a BiPAP, is positive for shortness of breath, cough, weakn ess. Denies chest pain, nausea, vomiting, or diarrhea. Physical Examination: Vital Signs: Temperature 96, respiratory rate 28, blood pressure 167/108. General: The patient is awake, in respiratory distress, on BiPAP. Neck: Supple. No elevated JVD. Heart: Regular rate and rhythm. Normal S1, S2. Chest: Decreased air entry bilaterally. Abdomen: Soft, nontender. Extremities: No edema. Laboratory Data: Sodium 126, BUN 24, creatinine 1.5, blood sugar 228. Troponin 1600. Assessment And Plan: 1.Acute on chronic kidney disease, possibly due to dehydration. Continue gentle hydration. Renally dose medication. 2.Diabetic chronic kidney disease. Creatinine 1.38 in October as above. Avoid NSAIDs and contrast. 3.Hyponatremia, likely due to poor solute intake. Continue IV fluid. 4.Elevated troponin. 5.[id number] myocardial infarction. Cardiology consulted. Continue gentle hydration as the p atient required cardiac catheterization. 6.Acute respiratory failure with COVID pneumonia. Continue antibiotic. 7.Diabetes mellitus. Continue insulin. Thank you for allowing me to participate in the patient's care. Total time spent 75 minutes including documentation, reviewing lab, placing orders, discussing with t medical team. CARMITA Voice ID: [id number] Report ID: [id number]
[2023-11-30] MEDS: HYDRALAZINE HCL 25 MG TABLET PO SCH (22:15)
[2023-11-30] MEDS: HEPARIN 5000 UNIT/ML 1 ML VIAL IV ONE (22:15)
[2023-11-30] MEDS: carvediloL 6.25 MG TAB PO SCH (22:23)
[2023-12-01] MEDS: LABETALOL 20 MG/4ML SYRINGE IV ONE (04:29)
[2023-12-01 04:55] LABS: Absolute Monocytes 0.9 K/uL (0.1-1.3); Absolute Neutrophil 9.6 K/uL (1.8-8.0); Basophils % 0.2 % (0-1.3); Hematocrit 35.3 % (39.6-49.0); Lymphocytes % 8.4 % (15.3-44.8); MCHC 33.9 g/dL (32.0-36.0); MCV 85.6 fL (80-100); MPV 7.5 fL (7.6-11.3); Monocytes % 7.8 % (3.3-12.3); Neutrophils % 83.6 % (41.7-73.7); Platelets 163 thou/uL (152-406); RBC Red Blood Cell Count 4.12 M/uL (4.33-5.43); Red Cell Distribution Width 15.2 % (12.1-15.2)
[2023-12-01 05:18] LABS: Anion Gap 7.8 mEq/L (5.0-15.0); Magnesium 2.1 mg/dL (1.6-2.4); Potassium 3.8 mEq/L (3.5-5.1)
[2023-12-01 05:26] LABS: Troponin High Sensitivity 2977.2 pg/mL (<58.9)
[2023-12-01 05:33] LABS: Specific Gravity 1.011 (1.005-1.030); Sqamous Epithelial None Seen /HPF (None Seen); Urine Bacteria <20 /HPF (<20); Urine Bilirubin NEGATIVE (Negative); Urine Blood 1+ (Negative); Urine Clarity Extremely Turbid (Clear); Urine Color Light-Yellow (Yellow); Urine Culture Reflex Order REFLEXED; Urine Glucose NEGATIVE (Negative); Urine Ketones NEGATIVE (Negative); Urine Microscopic Reflex YN ORDER UMIC; Urine Mucus Slight /HPF (None Seen); Urine Nitrite NEGATIVE (Negative); Urine Protein 1+ (Negative); Urine Urobilinogen Normal (Normal); Urine WBC >50 /HPF (<5); Urine Yeast (Budding) Trace /HPF (None Seen)
[2023-12-01] MEDS: Nicardipine/NS 25 MG/250 ML KIT IV SCH (05:41)
[2023-12-01] MEDS ORDERED: carvediloL 6.25 MG TAB PO SCH ×2 (08:00)
[2023-12-01] MEDS: ASPIRIN EC 81 MG TAB PO SCH (08:40)
[2023-12-01] MEDS: POTASSIUM CL SA 10 MEQ TAB PO ONE (08:40)
[2023-12-01] MEDS: dexAMETHasone 10 MG/ML VIAL IV SCH (08:40)
[2023-12-01] MEDS: FUROSEMIDE 40 MG/4 ML VIAL IV SCH (08:40)
[2023-12-01] MEDS: METOPROLOL XL 100 MG TAB PO SCH (08:49)
[2023-12-01] MEDS: ASPIRIN 81 MG CHEWABLE TABLET PO SCH (08:55)
[2023-12-01] MEDS: ENOXAPARIN 80 MG/0.8 ML SQ SCH (08:56)
[2023-12-01] MEDS ORDERED: dexAMETHasone 10 MG/ML VIAL IV SCH (09:00)
[2023-12-01] MEDS: NIRMATRELVIR/RITONAVIR TABLET PO SCH (10:00)
[2023-12-01] MEDS: METFORMIN HCL 850 MG TAB PO SCH (10:00)
[2023-12-01] MEDS: TRAZODONE 50 MG TABLET PO SCH (10:01)
[2023-12-01] MEDS: FLUOXETINE 10 MG CAP PO SCH (10:01)
[2023-12-01] MEDS: RISPERIDONE 1 MG TABLET PO SCH (10:01)
[2023-12-01] MEDS: FUROSEMIDE 40 MG/4 ML VIAL IV ONE (12:37)
--- NOTE | 2023-12-01 12:46 | P.CNS ---
Date of Consult: 12/01/23 Reason for Consult: Respiratory failure coronavirus pneumonia Chief Complaint: NSTEMI, hypoxia History of Present Illness: 63 years of age metabolic syndrome history of schizophrenia to be in respiratory failure dyspneic hypoxic tested positive for coronavirus has bilateral interstitial pneumonia consistent with coronavirus pneumonia doing better on nasal cannula oxygen can shows diffuse changes Allergies No Known Allergies Allergy (Unverified 11/30/23 10:51) Home Medications: Aspirin [Esperanza Chewable Aspirin] 81 mg PO DAILY 11/30/23 Benztropine Mesylate 1 mg PO BEDTIME 11/30/23 Fluoxetine HCl 10 mg PO DAILY 11/30/23 Metformin HCl 850 mg DAILY 11/30/23 Metoprolol Succinate 100 mg pe PO DAILY 11/30/23 NIFEdipine [Nifedipine ER] 60 mg PO DAILY 11/30/23 Risperidone [Risperdal] 1 mg PO BID 11/30/23 Trazodone HCl 50 mg PO DAILY 11/30/23 - Past Medical/Surgical History Diabetic: Yes -: HYPERTENSION -: SCHIZOPHRENIA -: DM - Social History Smoking Status: Current every day smoker Place of Residence: Home Review of Systems 10-point ROS is otherwise unremarkable General: Weakness Respiratory: Cough, Shortness of Breath Physical Examination Temp Pulse Resp BP Pulse Ox 97.3 F 98 H 29 H 158/103 H 96 12/01/23 12:00 12/01/23 12:00 12/01/23 12:00 12/01/23 12:00 12/01/23 12:00 General: Alert, Oriented x3, Cooperative Respiratory: Crackles/rales Cardiovascular: No edema, Regular rate/rhythm, Normal S1 S2 - Problems (1) Pneumonia due to coronavirus disease 2018 Current Visit: Yes Status: Acute Plan: Patient is 63 years of age admitted with pneumonia secondary to coronavirus infection pressure is also elevated patient has I have suspect chronic renal failure blood pressure is elevated low-dose spironolactone Decadron to 6 mg every 12 have also added Paxlovid chest x-ray CT scan was all reviewed and also has non-STEMI 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
[2023-12-01] MEDS: SPIRONOLACTONE 25 MG TABLET PO SCH (13:19)
--- NOTE | 2023-12-01 15:24 | RAD REPORT ---
EXAM DESCRIPTION: US - Renal Ultrasound-Complete - 12/01/2023 3:04 pm CLINICAL HISTORY: [place] COMPARISON: <Comparisons> FINDINGS: Both kidneys are normal in size, shape and echotexture. The right kidney measures 11.9 x 5.1 x 4.3 cm. No hydronephrosis, focal mass or perinephric fluid. The left kidney measures 11.8 x 5.7 x 4.4 cm. No hydronephrosis, focal mass or perinephric fluid. The urinary bladder is incompletely distended without gross abnormality seen. IMPRESSION: Unremarkable renal sonogram.
--- NOTE | 2023-12-01 15:39 | PN ---
Date of Progress Note: 12/01/2023 Subjective: The patient was admitted to the hospital with COVID respiratory failure. The patient was placed on IV fluid. Currently, he is on diuresis. Kidney function has been improved. His hyponatremia improved. Objective: Vital Signs: Blood pressure 137/78, pulse of 97, afebrile. The patient had good urine output of 3600. Chest: Crackles, bilateral. Heart: S1, S2. Regular. Abdomen: Soft, nontender. Extremity: Trace edema. Neurologic: Alert. No focality. The patient's CT showing pulmonary edema. Chest x-ray showing interstitial infiltration with pulmonary edema. Laboratory Data: Sodium 132, potassium 3.8, bicarb 25, BUN 26, creatinine 1.4, GFR 55, calcium 8.7. BNP 2900. Troponin trending up. ABG; pH 7.37, CO2 34. WBC 11.5, hemoglobin 12. Current Medications: The patient on, it includes: 1. Aspirin. 2. Nirmatrelvir with ritonavir. 3. Lovenox. 4. Hydralazine 50 t.i.d. 5. Metoprolol. 6. Lasix 40 daily. Assessment And Plan: 1. Acute kidney injury secondary to cardiorenal, overvolume. I am going to give the patient extra dose of Lasix today and we will follow up the patient. 2. Hyponatremia, mostly dilutional, questionable of SIADH, secondary to interstitial pneumonia, secondary to atypical pneumonia, secondary to COVID which I doubt. Mostly, it is overvolume status. I am going to go ahead and send for repeated uric acid and we will follow up the patient. 3. Chronic kidney disease with acute kidney injury, as above. We will follow up renal ultrasound and PTH to evaluate the chronicity of the disease. Time spent examining the patient [id number] reviewing the data and clapper and the radiology placing order discussing the case with the patient discussing the case with the steam shovelman including hospitalist and nursing staff more than 55 minutes KHALIDA Voice ID: [id number] Report ID: [id number] KAMALA
--- NOTE | 2023-12-01 16:26 | P.PN ---
Subjective Date of Service: 12/01/23 Chief Complaint: NSTEMI, hypoxia Subjective: No new changes, No C/O voiced, Tolerating diet, Ambulating, Improving Review of Systems 10-point ROS is otherwise unremarkable Physical Examination - Vital Signs Temperature: 98.3 F Blood Pressure: 166/87 Pulse: 94 Respirations: 28 Pulse Ox (%): 99 - Physical Exam General: Alert, In no apparent distress HEENT: Atraumatic, PERRLA, EOMI Neck: Supple, JVD not distended Respiratory: Clear to auscultation bilaterally, Normal air movement Cardiovascular: Regular rate/rhythm, Normal S1 S2 Gastrointestinal: Normal bowel sounds, No tenderness Musculoskeletal: No tenderness Integumentary: No rashes Neurological: Normal speech, Normal tone, Normal affect Lymphatics: No axilla or inguinal lymphadenopathy - Studies Medications List Reviewed: Yes Assessment And Plan - Current Problems (Diagnosis) (1) NSTEMI (non-ST elevated myocardial infarction) Current Visit: Yes Status: Acute Plan: most likely type 2 VA from COVID infection, EKG shows some ST depressions in lateral leads, will get coronary angiogram in am Heparin drip ASA 81 mg daily Lipitor 40 mg daily Get Echo (2) SOB (shortness of breath) Current Visit: Yes Status: Acute Plan: Lasix 40 mg IV BID Monitor input and output get Echo (3) HTN (hypertension) Current Visit: Yes Status: Acute Plan: Metoprolol 25 mg po BID
--- NOTE | 2023-12-01 16:59 | EKG ---
Test Date: 2023-11-30 Test Time: 13:32:37 Receptionist: TM MEASUREMENT RESULTS: Intervals: Rate: 117 MN: 170 QRSD: 80 QT: 322 QTc: 449 [place]: P: 57 MN: 170 QRS: 43 T: 75 INTERPRETIVE STATEMENTS: Sinus tachycardia Nonspecific ST abnormality Abnormal ECG Compared to ECG 11/30/2023 11:32:40 ST (T wave) deviation now present Sinus rhythm no longer present Electronically Signed On 12-01-23 16:56:59 CDT by Yong Benntet
--- NOTE | 2023-12-01 17:00 | EKG ---
Test Date: 2023-11-30 Test Time: 11:32:40 Organic Section Technical Lead: ALP MEASUREMENT RESULTS: Intervals: Rate: 96 [place]: 158 QRSD: 90 QT: 366 QTc: 462 [place]: P: 53 GA: 158 QRS: 22 T: 66 INTERPRETIVE STATEMENTS: Normal sinus rhythm Normal ECG Compared to ECG 11/30/2023 07:42:02 Sinus tachycardia no longer present Myocardial infarct finding no longer present ST (T wave) deviation no longer present Possible ischemia no longer present Electronically Signed On 12-01-23 16:57:12 CDT by Yong Bennett
--- NOTE | 2023-12-01 17:01 | EKG ---
Test Date: 2023-11-30 Test Time: 07:42:02 Geothermal Installer: ALP MEASUREMENT RESULTS: Intervals: Rate: 123 [place]: 158 QRSD: 90 QT: 314 QTc: 449 [place]: P: 48 [place]: 158 QRS: 15 T: 120 INTERPRETIVE STATEMENTS: Sinus tachycardia Septal infarct, age undetermined ST & T wave abnormality, consider lateral ischemia Abnormal ECG Compared to ECG 10/05/2023 14:08:26 Myocardial infarct finding now present ST (T wave) deviation now present Possible ischemia now present Sinus rhythm no longer present Electronically Signed On 12-01-23 16:57:37 CDT by Yong Bennett
[2023-12-01] MEDS: BENZTROPINE 1 MG TAB PO SCH (20:53)
[2023-12-02 05:05] LABS: Absolute Lymphocytes (CBC) 0.7 K/uL (0.7-4.9); Absolute Monocytes 0.3 K/uL (0.1-1.3); Basophils % 0.2 % (0-1.3); Eosinophils % 0.1 % (0-4.4); Hematocrit 31.5 % (39.6-49.0); Hemoglobin 11.4 g/dL (13.6-17.9); Lymphocytes % 7.3 % (15.3-44.8); MCH 30.5 pg (27.0-35.0); MCHC 36.1 g/dL (32.0-36.0); MCV 84.5 fL (80-100); MPV 7.7 fL (7.6-11.3); Monocytes % 3.9 % (3.3-12.3); Neutrophils % 88.5 % (41.7-73.7); Platelets 169 thou/uL (152-406); RBC Red Blood Cell Count 3.73 M/uL (4.33-5.43); Red Cell Distribution Width 15.2 % (12.1-15.2)
[2023-12-02 05:24] LABS: Albumin 2.7 g/dL (3.4-5.0); Anion Gap 11.2 mEq/L (5.0-15.0); Magnesium 2.1 mg/dL (1.6-2.4); Phosphorus 3.3 mg/dL (2.5-4.9); Potassium 4.2 mEq/L (3.5-5.1); Uric Acid 5.4 mg/dL (3.5-7.2)
[2023-12-02 05:40] LABS: Band Neutrophils 35 % (0-1); Blood Morphology Comment NOT SEEN (NOT SEEN); Differential Total Cells Count 100; Lymphocytes 10 % (15-42); Monocytes 3 % (0-10); Platelet Estimate ADEQ; Segmented Neutrophils 52 % (40-80)
--- NOTE | 2023-12-02 08:08 | RAD REPORT ---
EXAM DESCRIPTION: [place] Single View12/02/2023 6:33 am CLINICAL HISTORY: Shortness of breath COMPARISON: November 30, 2023 FINDINGS: Bilateral pulmonary opacities have mostly resolved Heart mildly enlarged IMPRESSION: Pulmonary edema has mostly resolved
--- NOTE | 2023-12-02 09:07 | ECHO ---
HEIGHT: 5 ft 7 in WEIGHT: 184 lb 15.485 oz DATE OF STUDY: 12/01/[address]: Yong Bennett MD 2-DIMENSIONAL: YES M.MODE: YES DOPPLER: YES COLOR FLOW: YES TDS: PORTABLE: YES DEFINITY: BUBBLE STUDY: DIAGNOSIS: ELEVATED TROPONIN CARDIAC HISTORY: CATHERIZATION: SURGERY: PROSTHETIC VALVE: PACEMAKER: MEASUREMENTS (cm) DIASTOLIC (NORMALS) SYSTOLIC (NORMALS) IVSd 1.1 (0.6-1.2) LA Diam 4.5 (1.9-4.0) LVEF 60-65% LVIDd 4.3 (3.5-5.7) LVIDs 4.0 (2.0-3.5) %FS 26% LVPWd 1.4 (0.6-1.2) Ao Diam 3.2 (2.0-3.7) 2 DIMENSIONAL ASSESSMENT: RIGHT ATRIUM: NORMAL LEFT ATRIUM: MODERATE DILATED RIGHT VENTRICLE: NORMAL LEFT VENTRICLE: NORMAL TRICUSPID VALVE: MILD TRICUSPID REGURGITATION MITRAL VALVE: MODERATE MITRAL REGURGITATION PULMONIC VALVE: NORMAL AORTIC VALVE: NORMAL PERICARDIAL EFFUSION: NONE AORTIC ROOT: NORMAL LEFT VENTRICULAR WALL MOTION: NORMAL DOPPLER/COLOR FLOW: NORMAL COMMENTS: 1. NORMAL LEFT VENTRICULAR SYSTOLIC FUNCTION, EJECTION FRACTION 60-65%, NORMAL WALL MOTION 2. NORMAL DIASTOLIC FUNCTION 3. MODERATE DILATED LEFT ATRIUM 4. MODERATE MITRAL REGURGITATION 5. ELEVATED FILLING PRESSURE (RIGHT ATRIUM 10-15 mmHg) TECHNOLOGIST: MARY GANN
--- NOTE | 2023-12-02 11:42 | P.PN ---
Subjective Date of Service: 12/02/23 Chief Complaint: NSTEMI, hypoxia Subjective: NPO Plan for cardiac cath Review of Systems Unremarkable Respiratory: Cough, SOB with Excertion Physical Examination - Vital Signs Temperature: 97.9 F Blood Pressure: 155/100 Pulse: 74 Respirations: 19 Pulse Ox (%): 97 - Physical Exam General: Alert, Oriented x3 HEENT: Atraumatic Neck: Supple, 2+ carotid pulse no bruit Respiratory: Crackles/rales Cardiovascular: No edema, Systolic murmur Capillary refill: <2 Seconds Gastrointestinal: Normal bowel sounds, Soft and benign Integumentary: No rashes, No breakdown Neurological: Normal gait, Normal speech, Normal tone Lymphatics: No axilla or inguinal lymphadenopathy External genitalia: No edema - Studies Laboratory Tests 11/30/23 11/30/23 11/30/23 07:50 08:00 08:09 WBC 7.30 RBC 4.06 L Hgb 12.0 L Hct 35.2 L MCV 86.6 MCH 29.6 MCHC 34.2 RDW 14.7 Plt Count 175 MPV 7.3 L Neutrophils % 80.1 H Lymphocytes % 7.9 L Monocytes % 9.5 Eosinophils % 1.2 Basophils % 1.3 Absolute Neutrophils 5.8 Absolute Lymphocytes 0.6 L Absolute Monocytes 0.7 Absolute Eosinophils 0.1 Absolute Basophils 0.1 PT INR APTT Sodium Potassium Chloride Carbon Dioxide Anion Gap BUN Creatinine Est GFR (CKD-EPI) Glucose Lactic Acid 1.9 Calcium Total Bilirubin AST ALT Alkaline Phosphatase Serum Total Protein Albumin Globulin Albumin/Globulin Ratio SARS-CoV-2 Ag (Rapid) Positive A 11/30/23 11/30/23 08:09 08:09 WBC RBC Hgb Hct MCV MCH MCHC RDW Plt Count MPV Neutrophils % Lymphocytes % Monocytes % Eosinophils % Basophils % Absolute Neutrophils Absolute Lymphocytes Absolute Monocytes Absolute Eosinophils Absolute Basophils PT 12.1 INR 1.08 APTT 36.7 Sodium 126 L Potassium 3.8 Chloride 96 L Carbon Dioxide 22 Anion Gap 11.8 BUN 22 H Creatinine 1.68 H Est GFR (CKD-EPI) 45 L Glucose 226 H Lactic Acid Calcium 8.5 Total Bilirubin 0.4 AST 15 ALT < 14 L Alkaline Phosphatase 59 Serum Total Protein 7.4 Albumin 3.4 Globulin 4.0 H Albumin/Globulin Ratio 0.9 L SARS-CoV-2 Ag (Rapid) Medications List Reviewed: Yes Assessment And Plan - Plan Assessment And Plan: 1. Acute kidney injury secondary to cardiorenal, overvolume. Patient planned for cardiac catheter. today we will hold the Lasix to avoid contrast-induced acute kidney injury 2. Hyponatremia, mostly dilutional, doubted to be SIADH, secondary to interstitial pneumonia, secondary to atypical pneumonia, secondary to COVID patient has been improved on the treatment for overvolume status. 3. Chronic kidney disease with acute kidney injury, as above. We will follow up renal ultrasound and PTH to evaluate the chronicity of the disease. 4-CAD plan for cardiac cath today we will follow-up with cardiology Time spent examining the patient [id number] reviewing data lab and radiology placing order discussing the case with the patient discussing the case with the maintenance team leader including nursing staff and ICU and hospitalist more than 55 minutes
[2023-12-02] MEDS ORDERED: ATROPINE SULF 1 MG/10 ML SYR IV ONE (12:14)
[2023-12-02] MEDS ORDERED: MIDAZOLAM HCL 2 MG/2 ML INJ ONE (12:14)
[2023-12-02] MEDS ORDERED: LIDOCAINE 1% 20 ML MDV ONE (12:14)
[2023-12-02] MEDS ORDERED: HEPA 1000U/500MLS 2,000 UNIT/1,000 ML BAG IV ONE (12:14)
[2023-12-02] MEDS ORDERED: HEPARIN 10,000 UNIT/10 ML VIAL IV ONE (12:15)
[2023-12-02] MEDS ORDERED: CLOPIDOGREL 75 MG TABLET ONE (12:15)
[2023-12-02] MEDS ORDERED: FENTANYL CITR 100 MCG/2 ML ONE (12:15)
[2023-12-02] MEDS ORDERED: TICAGRELOR 90 MG TABLET PO ONE (12:15)
[2023-12-02] MEDS ORDERED: HEPARIN 5000 UNIT/ML 1 ML VIAL ONE (12:15)
--- NOTE | 2023-12-02 12:15 | P.PN ---
Subjective Date of Service: 12/02/23 Chief Complaint: NSTEMI, grayson pneumonia Subjective: Improving Pain is improving doing better on nasal cannula oxygen scheduled for a cardiac cath Review of Systems General: Weakness Respiratory: Cough, Shortness of Breath Physical Examination - Vital Signs Temperature: 97.9 F Blood Pressure: 155/100 Pulse: 74 Respirations: 19 Pulse Ox (%): 97 - Physical Exam General: Alert, Oriented x3 - Studies Medications List Reviewed: Yes Assessment And Plan - Current Problems (Diagnosis) (1) Pneumonia due to coronavirus disease 2019 Current Visit: Yes Status: Acute Plan: Patient admitted with respiratory failure secondary to coronavirus pneumonia elevated troponin scheduled for a cardiac cath on is a probably elevated from his coronavirus infection count is normal renal function is worse echocardiogram is normal
[2023-12-02] MEDS ORDERED: NITROGLYCERIN/D5W 50 MG/250 ML BTL IV ONE (12:16)
[2023-12-02] MEDS ORDERED: NA CHLORIDE 0.9% 500 ML ONE (12:43)
[2023-12-02] MEDS ORDERED: ASPIRIN 325 MG TAB ONE (13:42)
[2023-12-02] MEDS: CLOPIDOGREL 75 MG TABLET PO ONE (14:59)
[2023-12-02] MEDS: NA CHLORIDE 0.9% 1,000 ML IV SCH (14:59)
--- NOTE | 2023-12-02 17:05 | P.PN ---
Subjective Date of Service: 12/02/23 Chief Complaint: NSTEMI, grayson pneumonia Subjective: No new changes, No C/O voiced, Tolerating diet, Ambulating, Improving Review of Systems 10-point ROS is otherwise unremarkable Physical Examination - Vital Signs Temperature: 98.1 F Blood Pressure: 160/81 Pulse: 82 Respirations: 21 Pulse Ox (%): 98 - Physical Exam General: Alert, In no apparent distress HEENT: Atraumatic, PERRLA, EOMI Neck: Supple, JVD not distended Respiratory: Clear to auscultation bilaterally, Normal air movement Cardiovascular: Regular rate/rhythm, Normal S1 S2 Gastrointestinal: Normal bowel sounds, No tenderness Musculoskeletal: No tenderness Integumentary: No rashes Neurological: Normal speech, Normal tone, Normal affect Lymphatics: No axilla or inguinal lymphadenopathy - Studies Medications List Reviewed: Yes Assessment And Plan - Current Problems (Diagnosis) (1) NSTEMI (non-ST elevated myocardial infarction) Current Visit: Yes Status: Acute Plan: Coronary angiogram done today and PCI of OM2 was done with Synergy 2.5x38 overlapped with Synergy 3.0x16 mm VICKY ASA 81 mg daily Plavix 300 mg x1 then continue Plavix 75 mg daily for 12 months Lipitor 40 mg daily (2) SOB (shortness of breath) Current Visit: Yes Status: Acute Plan: switch Lasix to 40 mg daily Monitor input and output (3) HTN (hypertension) Current Visit: Yes Status: Acute Plan: Metoprolol 25 mg po BID
[2023-12-02] MEDS ORDERED: TICAGRELOR 90 MG TABLET PO SCH (21:00)
[2023-12-02] MEDS: TRAZODONE 50 MG TABLET PO SCH (21:48)
[2023-12-02] MEDS: ATORVASTATIN 20 MG TAB PO SCH (21:50)
--- NOTE | 2023-12-02 22:27 | OP ---
Date of Procedure: 12/02/2023 Surgeon: Yong Bennett Procedures Performed: 1.Left heart catheterization. 2.Selective coronary angiogram. 3.PCI of the OM2 with Synergy 2.5 x 38 overlapped with 3.0 x 60 mm drug-eluting stents. Complications: None. Estimated Blood Loss: Less than 50 cc. Sedation Time: 30 minutes with 1 of Versed and 25 of fentanyl. Access: Right radial, closed by TR band. Description Of Procedure: After risks, benefits, and alternatives were explained to the patient, the patient agreed to proceed with the procedure and signed informed consent. The patient was brought b ack to the landscape laborer, prepped and draped in a sterile fashion. Time-out was performed. Sedation was administered. Next, right radial ultrasound-guided micropuncture technique access was obtained. Tig er 4 catheter was advanced over the J-wire to the LV cavity. LVEDP was obtained. Pullback did not s how any gradient. Same catheter was used for selective angiogram of the left and right coronary syst ems. The catheter was then exchanged for an EBU 3.5 mm guide. Heparin was administered. ACT was th erapeutic. Runthrough wire was passed across the lesion, pre-dilated with NC 2.5 and 3.0 mm NC ballo on. Next, Synergy 2.5 x 38 mm drug-eluting stent was placed across the mid to distal OM. It was ove rlapped with a 3.5 x 60 mm drug-eluting stent placed across the proximal OM that was postdilated with an NC 3.25 mm balloon. Final angiogram shows MAKENNA-3 flow. Wire was removed. Catheter was withdraw n over a J-wire. Sheath was removed and TR band was applied. The patient was moved back to recovery in stable condition. Findings: 1.Left main, normal. 2.LAD, diffuse mild luminal irregularities with mid to distal 30% to 40% disease. 3.Left circ, proximal mild luminal irregularities. Then gives OM1 the small diffuse 80% disease, co ntinues as an OM2 with diffuse 70% to 80% disease calcified. PCI done as above. 4.RCA, proximal mild luminal regularities with mid 30% disease and mild LI. 5.LVEDP 2 mmHg. Assessment: 1.Significant OM2 disease, status post PCI with Synergy 2.5 x 38 overlapped with 3.0 x 60 mm drug-el uting stent. 2.Normal filling pressure. Plan: 1.Aspirin 81 mg daily for life. 2.Brilinta 180 x1 was given in the landscape laborer, continue Brilinta 90 mg p.o. b.i.d. for 12 months. Indication For Procedure: [id number] SC. ZAC Voice ID: [id number] Report ID: [id number]
[2023-12-03 05:38] LABS: Absolute Monocytes 0.7 K/uL (0.1-1.3); Absolute Neutrophil 11.7 K/uL (1.8-8.0); Basophils % 0.1 % (0-1.3); Hematocrit 31.3 % (39.6-49.0); Hemoglobin 11.2 g/dL (13.6-17.9); Lymphocytes % 7.2 % (15.3-44.8); MCH 30.2 pg (27.0-35.0); MCHC 35.8 g/dL (32.0-36.0); MCV 84.2 fL (80-100); MPV 7.5 fL (7.6-11.3); Monocytes % 5.1 % (3.3-12.3); Neutrophils % 87.6 % (41.7-73.7); Platelets 201 thou/uL (152-406); RBC Red Blood Cell Count 3.72 M/uL (4.33-5.43)
[2023-12-03 06:44] LABS: Albumin 2.8 g/dL (3.4-5.0); Anion Gap 10.9 mEq/L (5.0-15.0); Magnesium 2.1 mg/dL (1.6-2.4); Phosphorus 2.8 mg/dL (2.5-4.9); Potassium 3.9 mEq/L (3.5-5.1)
--- NOTE | 2023-12-03 07:53 | RAD REPORT ---
EXAM DESCRIPTION: [place] Single View12/03/2023 6:06 am CLINICAL HISTORY: Shortness of breath COMPARISON: December 02, 2023 FINDINGS: Pulmonary vascular congestion present Lungs appear clear of acute infiltrate. Heart remains enlarged
[2023-12-03] MEDS: CLOPIDOGREL 75 MG TABLET PO SCH (08:17)
[2023-12-03] MEDS: dexAMETHasone 4 MG/ML VIAL IV SCH (08:17)
--- NOTE | 2023-12-03 12:39 | P.PN ---
Subjective Date of Service: 12/03/23 Chief Complaint: NSTEMI, grayson pneumonia Subjective: No new changes, No C/O voiced, Tolerating diet, Ambulating, Improving Review of Systems 10-point ROS is otherwise unremarkable Physical Examination - Vital Signs Temperature: 97.5 F Blood Pressure: 188/97 Pulse: 85 Respirations: 18 Pulse Ox (%): 97 - Physical Exam General: Alert, In no apparent distress HEENT: Atraumatic, PERRLA, EOMI Neck: Supple, JVD not distended Respiratory: Clear to auscultation bilaterally, Normal air movement Cardiovascular: Regular rate/rhythm, Normal S1 S2 Gastrointestinal: Normal bowel sounds, No tenderness Musculoskeletal: No tenderness Integumentary: No rashes Neurological: Normal speech, Normal tone, Normal affect Lymphatics: No axilla or inguinal lymphadenopathy - Studies Medications List Reviewed: Yes Assessment And Plan - Current Problems (Diagnosis) (1) NSTEMI (non-ST elevated myocardial infarction) Current Visit: Yes Status: Acute Plan: Coronary angiogram done today and PCI of OM2 was done with Synergy 2.5x38 overlapped with Synergy 3.0x16 mm VICKY ASA 81 mg daily Plavix 75 mg daily for 12 months Lipitor 40 mg daily (2) SOB (shortness of breath) Current Visit: Yes Status: Acute Plan: switch Lasix to 40 mg daily Monitor input and output (3) HTN (hypertension) Current Visit: Yes Status: Acute Plan: Metoprolol XL 100 mg daily Spirnolactone 25 mg daily Add Losartan 25 mg daily Cardiology will sign off, please call with any questions
[2023-12-03] MEDS: ENOXAPARIN 40 MG/0.4 ML SQ SCH (16:01)
[2023-12-03] MEDS: NIFEDIPINE XL 30 MG TABLET PO SCH (16:01)
[2023-12-04 06:39] LABS: Absolute Monocytes 0.8 K/uL (0.1-1.3); Basophils % 0.1 % (0-1.3); Hemoglobin 11.8 g/dL (13.6-17.9); Lymphocytes % 6.6 % (15.3-44.8); MCH 29.3 pg (27.0-35.0); MCHC 34.6 g/dL (32.0-36.0); MCV 84.5 fL (80-100); MPV 7.6 fL (7.6-11.3); Monocytes % 5.2 % (3.3-12.3); Neutrophils % 88.1 % (41.7-73.7); Platelets 196 thou/uL (152-406); RBC Red Blood Cell Count 4.02 M/uL (4.33-5.43); Red Cell Distribution Width 14.8 % (12.1-15.2)
[2023-12-04 06:57] LABS: Albumin 3.1 g/dL (3.4-5.0); Anion Gap 8.3 mEq/L (5.0-15.0); Magnesium 2.2 mg/dL (1.6-2.4); Phosphorus 3.3 mg/dL (2.5-4.9); Potassium 4.3 mEq/L (3.5-5.1)
--- NOTE | 2023-12-04 07:23 | P.PN ---
Date of Service: 12/04/23 Subjective Reports generalized weakness, Review of Systems per HPI Physical Examination - Vital Signs Reviewed - Physical Exam General: Alert, Oriented x3, no acute distress noted HEENT: Atraumatic, Normocephalic Neck: Supple, JVD not distended Respiratory: Normal air movement, equal, unlabored Cardiovascular: Normal pulses, Regular rate/rhythm Capillary refill: <2 Seconds Gastrointestinal: Normal bowel sounds, Soft and benign Musculoskeletal: No clubbing, No swelling Integumentary: No breakdown, No significant lesion Neurological: Normal speech, Normal strength at 5/5 x4 extr Assessment and Plan - Plan Assessment plan Acute hypoxic respiratory failure secondary to COVID/heart failure improving COVID pneumonia Paxlovid O2 2 L keep sats greater than 90%, wean O2 NSTEMI, elevated troponin Elevated BNP hypertension unknown control Hypertensive urgency Cardiology consult, telemetry, Trend troponin, Echo ordered for the a.m. EKG on arrival to the ER 123 beats/min. Rhythm is regular. QRS [place] is Normal. SC interval is normal. QRS interval is normal. QT interval is normal. No Q waves. ST Segment is depressed in leads V4, V5, V6. Clinical impression: Sinus tachycardia daily wt, IO Coronary angiogram done today and PCI of OM2 was done with Synergy 2.5x38 overlapped with Synergy 3.0x16 mm VICKY ASA 81 mg daily Plavix 75 mg daily for 12 months Lipitor 40 mg daily switch Lasix to 40 mg daily Metoprolol XL 100 mg daily Spirnolactone 25 mg daily Add Losartan 25 mg daily Cardiology will sign off, please call with any questions hypertension unknown control Hypertensive urgency Resume appropriate home meds As needed antihypertensive BP 185 / 91; Pulse 122; Resp 36; Pulse Ox 91% on 4 lpm NC; Weight 83.91 kg; Height 5 ap3 ft. 7 in Hyponatremia Acute kidney kidney injury likely secondary to prerenal CHF Nephrology consult Gentle IV fluid Trend electrolytes replace as needed History of schizophrenia resume approp home meds Full code DVT heparin drip Diet n.p.o. Disposition Home independent prior Discharge Plan: Home - Advance Directives Does patient have a Living Will: No Does patient have a Durable POA for Healthcare: No - Code Status/Comfort Care Code Status: Full Code Critical Care: Yes Time Spent Managing Pts Care (In Minutes): 35 <Nahed Chapman - Last Filed: 12/04/23 15:10> Chart has been reviewed. Events of the last 24 hours have been noted. Case discussed with LELE. I performed a substantial part of the MDM during this patient's care today. I personally made or approved the documented management plan and acknowledge its risk of complications. I agree with the findings and documentation provided in the LELE's notes <Francois Delacruz - Last Filed: 12/23/23 02:47>
--- NOTE | 2023-12-04 07:41 | RAD REPORT ---
EXAM DESCRIPTION: RAD - Chest Single View - 12/04/2023 5:49 am CLINICAL HISTORY: Kacie failure from coronavirus Chest pain. COMPARISON: <Comparisons> FINDINGS: Portable technique limits examination quality. Mild bilateral pulmonary opacities are present which may represent viral infection or mild pulmonary edema. Left lung aeration appears slightly worse compared to yesterday's study. The heart is mildly e nlarged in size. No displaced fractures.
[2023-12-04] MEDS: LOSARTAN POTASSIUM 50 MG TABLET PO SCH (10:07)
[2023-12-04] MEDS: NA CHLORIDE 0.9% 1,000 ML IV SCH (10:07)
[2023-12-04] MEDS: FUROSEMIDE 40 MG TABLET PO SCH (10:08)
[2023-12-04] MEDS: ASPIRIN EC 81 MG TAB PO SCH (10:08)
--- NOTE | 2023-12-04 10:53 | P.PN ---
Subjective Date of Service: 12/04/23 Chief Complaint: NSTEMI, grayson pneumonia Patient is doing much better his chest x-ray is cleared s/p stent placement Review of Systems Unremarkable General: Weakness Physical Examination - Vital Signs Temperature: 97.1 F Blood Pressure: 140/81 Pulse: 78 Respirations: 20 Pulse Ox (%): 99 - Physical Exam General: In no apparent distress, Oriented x3 Respiratory: Clear to auscultation bilaterally Cardiovascular: No edema, Regular rate/rhythm - Studies Medications List Reviewed: Yes Assessment And Plan - Current Problems (Diagnosis) (1) Pneumonia due to coronavirus disease 2018 Current Visit: Yes Status: Acute Plan: Patient has improved significantly a chest x-ray has almost cleared with low- dose p.o. Decadron DC Decadron now his oxygenation is normal blood sugar is elevated his renal function is worse and may be from the dye agree with IV fluids
--- NOTE | 2023-12-04 12:41 | PN ---
Date of Progress Note: 12/04/2023 Subjective: The patient was admitted to the hospital with COVID. The patient is status post cardiac cath on the . The patient's kidney function has been deteriorated. Physical Examination: Vital Signs: Blood pressure 140/81, pulse of 78, afebrile. Chest: Clear to auscultation. Heart: S1, S2, regular. Abdomen: Soft, nontender. Extremities: No edema. Neuro: Alert. No focality. Laboratory Data: Sodium 125, potassium 4.3, bicarb 25, BUN 55, creatinine 2.4. BNP 7100. Current Medications: The patient on include: 1. Paxlovid. 2. Breathing treatment. 3. Plavix. 4. Atorvastatin. 5. Losartan. 6. Metoprolol. 7. Spironolactone. 8. Tylenol. 9. Trazodone. 10. Lasix. Assessment And Plan: 1. Acute kidney injury, possible secondary to contrast-induced nephropathy, looked to me on the normal volume side. I am going to go ahead and hold his lisinopril. Hold spironolactone for the time being and Lasix and we will follow up the patient. 2. Hypertension with the presence of acute kidney injury. Hold MANDO inhibitor and diuresis. We will monitor. 3. Hyponatremia, possible secondary to SIADH/depletional, secondary to the diuresis. The patient had workup before. We will repeat the workup. We will continue fluid restriction for the time being. 4. CAD with exacerbation of CHF, recover. Time spent examining the patient [id number] reviewing the data and clapper and the radiology placing order discussing the case with the patient discussing the case with the steam train driver including hospitalist and nursing staff more than 55 minutes KHALIDA Voice ID: [id number] Report ID: [id number] KAMALA
[2023-12-04] MEDS: NICOTINE 21 MG/PAT TD STA (14:27)
[2023-12-04] MEDS: NA CHLORIDE 0.9% 250 ML IV ONE (15:32)
[2023-12-04 16:41] LABS: Anion Gap 13.1 mEq/L (5.0-15.0); Magnesium 2.2 mg/dL (1.6-2.4); Potassium 4.1 mEq/L (3.5-5.1)
[2023-12-04] MEDS: NACHLORIDE 0.45% 0 ML IV ONE (20:32)
[2023-12-04] MEDS: NACHLORIDE 0.45% 1,000 ML IV ONE (20:36)
[2023-12-04] MEDS ORDERED: dexAMETHasone 4 MG TAB PO SCH (21:00)
[2023-12-04] MEDS: NACHLORIDE 0.45% 1,000 ML with NA BICARB 8.4% 100 MEQ IV SCH (21:00)
[2023-12-04] MEDS: SODIUM BICARB 50 MEQ/50ML VIAL ONE ×2 (21:00)
[2023-12-04 21:44] LABS: Specific Gravity 1.006 (1.005-1.030); Sqamous Epithelial None Seen /HPF (None Seen); Urine Bacteria None Seen /HPF (<20); Urine Bilirubin NEGATIVE (Negative); Urine Blood Trace (Negative); Urine Clarity Clear (Clear); Urine Color Colorless (Yellow); Urine Culture Reflex Order NOT NEEDED; Urine Glucose TRACE (Negative); Urine Ketones NEGATIVE (Negative); Urine Microscopic Reflex YN ORDER UMIC; Urine Nitrite NEGATIVE (Negative); Urine Protein 1+ (Negative); Urine RBC <5 /HPF (None Seen); Urine Urobilinogen Normal (Normal); Urine WBC <5 /HPF (<5); Urine pH 5.5 (5.0-7.0)
[2023-12-04 21:49] LABS: UR SODIUM 31 mmol/L (27-287)
[2023-12-04 22:01] LABS: UR POTASSIUM < 6.0 mmol/L (20-40)
[2023-12-04 22:03] LABS: UR PROTEIN 40.1 mg/dL (<11.9); Urine Protein/Creatinine Ratio 2.11 ratio (<0.15)
[2023-12-05 07:03] LABS: Absolute Lymphocytes (CBC) 1.2 K/uL (0.7-4.9); Absolute Neutrophil 9.8 K/uL (1.8-8.0); Basophils % 0.1 % (0-1.3); Hematocrit 32.5 % (39.6-49.0); Hemoglobin 11.6 g/dL (13.6-17.9); MCH 29.7 pg (27.0-35.0); MCHC 35.5 g/dL (32.0-36.0); MCV 83.7 fL (80-100); MPV 7.1 fL (7.6-11.3); Monocytes % 8.6 % (3.3-12.3); Neutrophils % 81.3 % (41.7-73.7); Platelets 212 thou/uL (152-406); RBC Red Blood Cell Count 3.89 M/uL (4.33-5.43); Red Cell Distribution Width 15.1 % (12.1-15.2)
[2023-12-05 07:27] LABS: Albumin 2.9 g/dL (3.4-5.0); Albumin/Globulin Ratio 0.7 (1.1-1.8); Anion Gap 8.4 mEq/L (5.0-15.0); Bilirubin Total 0.5 mg/dL (0.2-1.0); Globulin 3.9 g/dL (2.3-3.5); Magnesium 2.3 mg/dL (1.6-2.4); Potassium 4.4 mEq/L (3.5-5.1); Protein, Total 6.8 g/dL (6.4-8.2)
[2023-12-05 07:38] LABS: Anion Gap 8.4 mEq/L (5.0-15.0); Magnesium 2.3 mg/dL (1.6-2.4); Phosphorus 2.9 mg/dL (2.5-4.9); Potassium 4.4 mEq/L (3.5-5.1)
[2023-12-05] MEDS: POTASS/SODIUM PHOSPHATE 1 PKT POWD.PACK PO SCH (08:12)
[2023-12-05 10:43] VITALS: BMI 28.2
[2023-12-05 10:58] VITALS: O2SAT 98
[2023-12-05 11:28] VITALS: BP 169/91; TEMP 97
--- NOTE | 2023-12-05 13:45 | PN ---
Date of Progress Note: 12/05/2023 Subjective: The patient was admitted to the hospital with COVID, unstable angina. The patient is status post cardiac catheterization. Patient had acute kidney injury secondary to contrast. Objective: Vital Signs: Blood pressure 169/91, pulse of 72, afebrile. Chest: Clear to auscultation. Heart: S1, S2. Regular. Abdomen: Soft, nontender. Extremity: No edema. Neurologic: Alert. Pleasantly confused. Laboratory Data: Hemoglobin 11.6, sodium 134, potassium 4.4, bicarb 26, BUN 45, creatinine 1.6, calcium 8.9. Current Medications: The patient on, it includes Paxlovid, Xopenex, Plavix, atorvastatin, metoprolol 100 b.i.d., trazodone, bicarb drip. Assessment And Plan: 1. Acute kidney injury secondary to contrast-induced nephropathy, plateaued currently. The patient looked to me on the normal volume side. I am going to keep holding lisinopril and spironolactone. We will discontinue IV fluid for today. 2. Acidosis, resolved. Discontinue bicarb. 3. Hyponatremia, depletional, resolved. 4. COVID pneumonia, as by Primary. 5. Coronary artery disease with congestive heart failure, currently normal volume. Discontinue IV fluid. Discontinue bicarb. Keep holding diuresis. Time spent examining the patient [id number] reviewing the data and clapper and the radiology placing order discussing the case with the patient discussing the case with the head orthopedic team physician including hospitalist and nursing staff more than 55 minutes KHALIDA Voice ID: [id number] Report ID: [id number] KAMALA
--- NOTE | 2023-12-23 02:48 | P.DS ---
Discharge Date: 12/05/23 Disposition: ROUTINE DISCHARGE Discharge Condition: GOOD Reason for Admission: NSTEMI, grayson pneumonia Brief History of Present Illness: 63-year-old male with a past medical history of diabetes, hypertension, schizophrenia, presents to the emergency room via EMS. Per nursing his brother called EMS because the patient was short of breath at home. Reports shortness of breath worse with exertion, worse while lying flat, reports associated coughing, he denies history of congestive heart failure, he denies chest pain, no reported edema, ER evaluation on arrival to EMS patient was 78%, was placed on oxygen and BiPAP in the emergency room. Reports extensive history of tobacco use, and is still smoking. Laboratory evaluation elevated troponin 1250, 1679, placed on a heparin drip in the emergency room. Elevated BNP 9607,, patient placed on BiPAP BiPAP for shortness of breath, diuretics, he has mild hyponatremia 126, acute kidney injury, nephrology consulted for hyponatremia. Cardiology consulted for elevated troponin, echo ordered for the a.m., CBC no leukocytosis,, microcytic anemia 11.5 repeat 12.0, patient Positive for COVID. Plan to admit to ICU on BiPAP, for acute hypoxic respiratory failure secondary to COVID, heart failure, CT of the chest negative for PE. Hospital Course: Patient has done well during hospital stay. Patient is clinically doing much better. Labs are stable. At this time, patient is stable for discharge with outpatient follow-up with PCP and specialist. Patient is told to call me if he has any questions over the next few days and we can give patient taking care of at that time. Vital Signs/Physical Exam: Temp Pulse Resp BP Pulse Ox 97.0 F 72 18 169/91 H 97 12/05/23 11:27 12/05/23 11:49 12/05/23 11:27 12/05/23 11:49 12/05/23 11:27 General: Alert, In no apparent distress, Oriented x3 Laboratory Data at Discharge: WBC 12.00 thou/uL (4.3-10.9) H 12/05/23 06:30 Hgb 11.6 g/dL (13.6-17.9) L 12/05/23 06:30 Hct 32.5 % (39.6-49.0) L 12/05/23 06:30 Plt Count 212 thou/uL (152-406) 12/05/23 06:30 PT 12.1 SECONDS (9.4-12.5) 11/30/23 12:49 INR 1.08 11/30/23 12:49 APTT 43.0 SECONDS (24.3-36.9) H 12/01/23 06:38 Sodium 134 mEq/L (136-145) L 12/05/23 06:30 Sodium 134 mEq/L (136-145) L D 12/05/23 06:30 Potassium 4.4 mEq/L (3.5-5.1) 12/05/23 06:30 Potassium 4.4 mEq/L (3.5-5.1) 12/05/23 06:30 BUN 45 mg/dL (7-18) H 12/05/23 06:30 BUN 45 mg/dL (7-18) H 12/05/23 06:30 Creatinine 1.59 mg/dL (0.70-1.30) H 12/05/23 06:30 Creatinine 1.62 mg/dL (0.70-1.30) H 12/05/23 06:30 Glucose 184 mg/dL (74-106) H 12/05/23 06:30 Glucose 188 mg/dL (74-106) H 12/05/23 06:30 Uric Acid 5.0 mg/dL (3.5-7.2) 12/05/23 06:30 Phosphorus 2.9 mg/dL (2.5-4.9) 12/05/23 06:30 Magnesium 2.3 mg/dL (1.6-2.4) 12/05/23 06:30 Magnesium 2.3 mg/dL (1.6-2.4) 12/05/23 06:30 Total Bilirubin 0.5 mg/dL (0.2-1.0) 12/05/23 06:30 AST 32 U/L (15-37) 12/05/23 06:30 ALT 38 U/L (16-61) 12/05/23 06:30 Alkaline Phosphatase 52 U/L (45-117) 12/05/23 06:30 Triglycerides 77 mg/dL (<150) 12/01/23 04:22 Cholesterol 170 mg/dL (<200) 12/01/23 04:22 HDL Cholesterol 53 mg/dL (40-60) 12/01/23 04:22 Cholesterol/HDL Ratio 3.21 12/01/23 04:22 Home Medications: Aspirin [Esperanza Chewable Aspirin] 81 mg PO DAILY 11/30/23 Benztropine Mesylate 1 mg PO BEDTIME 11/30/23 Fluoxetine HCl 10 mg PO DAILY 11/30/23 Metformin HCl 850 mg DAILY 11/30/23 Metoprolol Succinate 100 mg pe PO DAILY 11/30/23 NIFEdipine [Nifedipine ER] 60 mg PO DAILY 11/30/23 Risperidone [Risperdal] 1 mg PO BID 11/30/23 Trazodone HCl 50 mg PO DAILY 11/30/23 Atorvastatin Calcium [Lipitor*] 20 mg PO BEDTIME #30 tab 12/05/23 Clopidogrel Bisulfate [Plavix*] 75 mg PO DAILY #30 tab 12/05/23 Nirmatrelvir/Ritonavir [Paxlovid 150-100 mg Pack] 2 tab PO BID #1 dose 12/05/23 New Medications: Atorvastatin Calcium [Lipitor*] 20 mg PO BEDTIME #30 tab Nirmatrelvir/Ritonavir [Paxlovid 150-100 mg Pack] 2 tab PO BID #1 dose Clopidogrel Bisulfate [Plavix*] 75 mg PO DAILY #30 tab Physician Discharge Instructions: -DC IV and DC home -Follow-up with PCP in 1 to 2 weeks -Follow-up with Cardiology in 1 to 2 weeks -Follow-up with Nephrology in 2-4 weeks -Follow-up with Psychiatry in 2-4 weeks -Please call Dr. Delacruz at [phone] if any questions regarding hospital stay -Please call nursing station at [phone] if any nursing or medication questions -Return to the emergency room if symptoms worsen Diet: AHA Activity: Fall precautions Followup: Perico Siegel MD [Primary Care Provider] - Time spent managing pt's care (in minutes): 35
== END 2023-12-05 14:42 | disposition home or self-care (01) | DRG 981 ==
LOC: ER 07:37 → ERHOLD 09:58 → 3RD-ICU 13:31 → ERHOLD 13:49 → 3RD-ICU 16:23 → 4TH 12-03 14:00
PROVIDERS: ADMIT Hospitalist; ATTEND Hospitalist
PROC: 4A033R1 Measurement of Arterial Saturation, Peripheral, Percutaneous Approach (ICD-10-PCS; 2023-11-30)
PROC: 5A09557 Assistance with Respiratory Ventilation, Greater than 96 Consecutive Hours, Continuous Positive Airway Pressure (ICD-10-PCS; 2023-11-30)
PROC: 027035Z Dilation of Coronary Artery, One Artery with Two Drug-eluting Intraluminal Devices, Percutaneous Approach (ICD-10-PCS; principal; 2023-12-02)
PROC: 4A023N7 Measurement of Cardiac Sampling and Pressure, Left Heart, Percutaneous Approach (ICD-10-PCS; 2023-12-02)
PROC: B2111ZZ Fluoroscopy of Multiple Coronary Arteries using Low Osmolar Contrast (ICD-10-PCS; 2023-12-02)
DX: U07.1 COVID-19 (principal); I21.A1 Myocardial infarction type 2; I50.31 Acute diastolic (congestive) heart failure; J96.01 Acute respiratory failure with hypoxia; J12.82 Pneumonia due to coronavirus disease 2019; J44.1 Chronic obstructive pulmonary disease with (acute) exacerbation; J44.0 Chronic obstructive pulmonary disease with (acute) lower respiratory infection; E87.1 Hypo-osmolality and hyponatremia; N17.9 Acute kidney failure, unspecified; I13.0 Hypertensive heart and chronic kidney disease with heart failure and stage 1 through stage 4 chronic kidney disease, or unspecified chronic kidney disease; I25.110 Atherosclerotic heart disease of native coronary artery with unstable angina pectoris; E87.20 Acidosis, unspecified; N18.30 Chronic kidney disease, stage 3 unspecified; E11.22 Type 2 diabetes mellitus with diabetic chronic kidney disease; D63.1 Anemia in chronic kidney disease; D50.9 Iron deficiency anemia, unspecified; E86.0 Dehydration; I16.0 Hypertensive urgency; F20.9 Schizophrenia, unspecified; F17.210 Nicotine dependence, cigarettes, uncomplicated; Z79.82 Long term (current) use of aspirin; Z79.84 Long term (current) use of oral hypoglycemic drugs; Z79.899 Other long term (current) drug therapy
CPT/HCPCS: 36415; 36600; 71045; 71275; 76770; 76937; 80048; 80053; 80061; 80069; 81001; 82533; 82570; 82805; 82947; 83605; 83735; 83880; 83935; 83970; 84100; 84132; 84156; 84300; 84443; 84484; 84550; 85025; 85347; 85379; 85610; 85730; 87040; 87086; 87088; 87804; 87811; 92928; 93005; 93306; 93458; 94660; 94760; 99152; 99285; C1725; C1893; C9600; J0461; J0696; J1100; J1644; J1650; J1940; J2001; J2250; J2919; J3010; J3475; J7030; J7040; J7050; J7614; J7644; J8499; Q9967